=== PATIENT | male | born 1985 | race Hispanic/Latino ===

== ENCOUNTER 2016-11-06 07:44 | Inpatient (IN) | payer OTHER ==
[~2016-11-06] VITALS: Ht 182.9 cm; Wt 106.1 kg
[2016-11-06] MEDS ORDERED: METOCLOPRAMIDE INJ 10MG/2ML VIAL (J2765) As Ordered ONE (08:31)
[2016-11-06] MEDS ORDERED: diphenhydrAMINE INJ 50MG/ML VIAL (J1200) As Ordered ONE (08:31)
[2016-11-06 08:43] LABS: MEAN CORPUSCULAR HEMOGLOBIN 29.6 pg (27.0-33.0); MEAN CORPUSCULAR HGB CONC 33.1 g/dl (32.0-36.5); MEAN CORPUSCULAR VOLUME 89.5 fl (80.0-96.0); RED CELL DISTRIBUTION WIDTH 12.6 % (11.5-14.5); WHITE BLOOD COUNT 5.2 K/mm3 (4.0-10.0)
[2016-11-06 09:02] LABS: ANION GAP 8 MEQ/L (8-16); BLOOD UREA NITROGEN 17 MG/DL (7-18); CALCIUM LEVEL 9.2 MG/DL (8.5-10.1); CARBON DIOXIDE LEVEL 28 MEQ/L (21-32); CHLORIDE LEVEL 107 MEQ/L (98-107); CREATININE FOR GFR 1.27 MG/DL (0.70-1.30); GLOMERULAR FILTRATION RATE > 60.0 (>60); GLUCOSE, FASTING 111 MG/DL (70-105); POTASSIUM SERUM 3.9 MEQ/L (3.5-5.1); SODIUM LEVEL 143 MEQ/L (136-145)
--- NOTE | 2016-11-06 09:21 | REP ---
CT BRAIN WITHOUT CONTRAST: 11/06/2016 COMPARISON: 08/31/2016 CLINICAL HISTORY: Headache, syncope. FINDINGS: Lateral ventricles symmetric and without dilatation or displacement. Third ventricle is slit-like and even more narrow than on the previous study. The fourth ventricle is also smaller. Basal ganglia are symmetric. Brainstem and cerebellum show loss of perimesencephalic cisterns and loss of definition. There appears to be swelling of that posterior fossa. The bailey-white junction differentiation in the cerebellar hemispheres is maintained. There is no intra or extra-axial hemorrhage of clearly defined. No definite mass is identified. No definite infarct identified. Mastoids and visualized sinuses show only minor ethmoid sinus mucosal thickening. The skull base and calvarium show no fracture or focal lesion. IMPRESSION: 1. Interval change in the presentation CT brain with loss of the basilar cistern patency and suspected swelling in the posterior fossa. Both the perimesencephalic and suprasellar cisterns are effaced or less apparent. An isodense mass could not be excluded. No definite hemorrhage. Sinuses show some minor ethmoid sinus mucosal thickening. No focal bone lesion. I discussed this with the attending ED physician. MR recommended. Signed by Greg Ely MD 11/06/2016 04:56 P
[2016-11-06 10:41] LABS: AMPHETAMINES LEVEL URINE NEGATIVE (NEGATIVE); BENZODIAZEPINES URINE NEGATIVE (NEGATIVE); COCAINE METABOLITE URINE NEGATIVE (NEGATIVE); CONTROL LINE INT CTR LINE PRESENT; METHADONE URINE NEGATIVE (NEGATIVE); OPIATES URINE NEGATIVE (NEGATIVE); TRICYCLIC ANTIDEPRESS URINE NEGATIVE (NEGATIVE)
--- NOTE | 2016-11-06 11:33 | REP ---
MRI BRAIN WITHOUT WITH CONTRAST: 11/06/2016 COMPARISON: CT brain 11/06/2016, 08/31/2016, MRA brain today. CLINICAL HISTORY: Dizziness, weakness, posterior fossa edema on CT. TECHNIQUE: Axial T1, T2, FLAIR, diffusion weighted images with ADC mapping sequences were provided along with sagittal T1 sequence. After infusion of ProHance 21 mL, axial and coronal T1 sequences performed. FINDINGS: Lateral ventricles are symmetric and without dilatation or displacement. Slit-like third ventricle and fourth ventricle smaller than on the CT in August,. T1 images show no evidence of extra-axial fluid collection or hemorrhage. The T2 and FLAIR images show slight prominence and hyperintensity of the dura with some dural thickening and the enhanced images show increased dural enhancement diffusely. The basal ganglia are symmetric and unremarkable. Sylvian fissures are effaced compared to the CT in August. The bailey-white junction differentiation is maintained. Cortical stripe preserved. There is no atrophy or visible mass. Diffusion-weighted images and ADC mapping sequences show no evidence of acute ischemia or restricted water diffusion. After contrast administration, there is no gyriform enhancement, enhancing mass or vascular lesion. However there does appear to be some increased enhancement of the dura. The brainstem and cerebellum show no atrophy. The quadrigeminal plate cisterns are mostly effaced. No definite cerebellar tonsillar ectopia. Seventh and eighth cranial nerve complexes are symmetric and normal. There is ethmoid sinus mucosal thickening and some mucosal thickening in the floor of both maxillary sinuses. The small mucous retention cyst or polyp in the anterior wall on the left. Frontal sinuses are grossly clear as are the sphenoid sinuses. Orbits and contents symmetric. Corpus callosum, optic chiasm and pituitary are intact. There is no gyriform enhancement or enhancing mass visible in the cerebral or cerebellar hemispheres or brainstem. IMPRESSION: 1. Pattern of effacement of the basal cisterns and sylvian fissures. I do not see focal edema or mass within the brainstem, cerebellum or cerebral hemispheres. No abnormal enhancement or restricted water diffusion on diffusion-weighted images. 2. Slight prominence of hyperintense T2 and FLAIR dural signal and some dural enhancement that might reflect some meningitis, nonspecific. No nodular enhancement of the dura or MR evidence for encephalitis at this time. 3. The seventh/eighth cranial nerve complexes and mastoids intact. Sinus mucosal thickening as described. Findings were discussed with the consulting neurosurgeon by phone at the time of this dictation. Signed by Greg Ely MD 11/06/2016 05:05 P
--- NOTE | 2016-11-06 11:38 | REP ---
MRA OF THE BRAIN WITHOUT CONTRAST: 11/06/2016. Clinical history: Evaluate for vascular abnormality. Brain swelling. 3-D [id number] gradient echo with MIP reformatting and rotational display of the volume acquisition and reconstructions about the longitudinal and horizontal axis of the brain. All source images are reviewed. Vertebral artery shows symmetric contribution and formation of the basilar artery. There is no basilar stenosis or aneurysm. Both posterior cerebral arteries arise from the basilar tip. The posterior cerebral arteries are symmetric in their supply to the posterior fossa and normal. The right and left internal carotids through the skull base to the carotid siphons are unremarkable. The cavernous portions and supraclinoid internal carotids were unremarkable. The A1 segments show slightly larger right than left size but this is a normal variant. There is no focal stenosis. The bilateral M1 segments were symmetric. Trifurcation vessels of the middle cerebrals and the anterior cerebral branches were grossly unremarkable. All source images are reviewed and confirm the absence of findings. Impression: 1. Normal MR angiogram of the brain. No aneurysm, vascular malformation, vessel cutoff or focal stenosis. Signed by Greg Ely MD 11/06/2016 05:05 P
[2016-11-06] MEDS ORDERED: KETOROLAC 30 MG/ML VIAL (J1885) As Ordered ONE (11:40)
[2016-11-06] MEDS ORDERED: ACETAMINOPHEN TAB 650MG DOSE (2X325MG) PO PRN (12:15)
[2016-11-06] MEDS ORDERED: ONDANSETRON 4 MG TAB (S0181) PO PRN (12:15)
[2016-11-06 12:47] VITALS: BP 115/66
[2016-11-06] MEDS ORDERED: EXCETAB81 PO (12:50)
[2016-11-06] MEDS ORDERED: TYLE325T5 PO (12:50)
--- NOTE | 2016-11-06 13:49 | HPE ---
DATE OF ADMISSION: 11/06/2016 PRIMARY CARE PROVIDER: The patient is a [place], [place] REASON FOR ADMISSION: Headaches and a syncopal episode earlier that day. HISTORY OF PRESENT ILLNESS: The patient is a 30-year-old male with no past medical problems who presented to the emergency room complaining of sinus pressure and fluid behind his ears and a headache that is described as starting from his forehead and to the back of his head that has been going on for the past 3 months on and off, worse with sitting up or standing up. This morning, the patient stated he was putting tools away in his truck and his found him unresponsive on the floor. It took her a few seconds to wake him up and she brought him to the emergency room. He did not have any pains. He was not complaining of any focal deficits. No trauma that he sustained from fall. In the emergency room, MRI/MRA were done after CT of the head. Initial CT scan of the head showed suspected swelling in the posterior fossa. MRI was recommended. MRI of the head was done which showed edema. It was reviewed by Dr. Townsend. He recommended neurology workup. MRA was also done and was negative for any masses, any aneurysm, any vascular malformations or stenosis. Dr. Figueroa was consulted from the emergency room. He recommended to start the patient on IV fluids and caffeine, keep the patient at bedrest with bathroom privileges and he had agreed to see him in consultation. The patient was admitted to the hospitalist service. REVIEW OF SYSTEMS: Ten point review of systems was obtained, all which was negative except for those mentioned above. PAST MEDICAL HISTORY: None. PAST SURGICAL HISTORY: The patient had an eye surgery, a bone graft from hip to jaw, vasectomy, oral surgery and appendectomy. ALLERGIES: No known drug allergies. HOME MEDICATIONS: None. SOCIAL HISTORY: The patient was a smoker, but quit 6 months ago. Denies alcohol use. Lives at home with his and two kids. FAMILY HISTORY: Noncontributory. PHYSICAL EXAMINATION: Vitals: On admission, blood pressure 136/81, pulse 70, respiratory rate 18, temperature 96.5. Pulse oximetry 95% on room air. HEENT: Pupils equal round and reactive. Neck: Supple. No jugular venous distention (JVD). Lungs: Clear to auscultation (CTA) bilaterally. Cardiac: Regular rate and rhythm. No murmurs. Abdomen: Soft, nontender, nondistended. Extremities: No clubbing, cyanosis or edema. Neurologic: Cranial nerves II-XII grossly intact. No focal deficits upper or lower extremities. LABORATORY FINDINGS: WBC 5.2, hemoglobin 15.3, hematocrit 46.2, platelet count 220. Sodium 143, potassium 3.9, chloride 107, BUN 17, creatinine 1.27, fasting glucose 111. ASSESSMENT/PLAN: 1. Headaches, unknown etiology at this time. The headache is worse with sitting up from a lying position or standing. Per Dr. Figueroa, the headache sounds like a spinal headache. We will continue IV hydration and caffeine. Will continue neuro checks every [address] Figueroa is consulted and will see the patient in consultation. 2. Syncopal episode. We will monitor the patient on telemetry to rule out any cardiac arrhythmia. EKG was normal sinus rhythm. Electrolytes are within normal limits. 3. Deep vein thrombosis (DVT) prophylaxis. Sequential compression devices (SCDs), thromboembolic deterrent stockings (TEDs).
[2016-11-06 15:50] VITALS: BP 127/58
--- NOTE | 2016-11-06 15:56 | EDDOCDS ---
Nurse's Notes [facility] Name: Kyrie Driver Age: 30 yrs Sex: Male : 1985 Arrival Date: 11/06/2016 Time: 07:44 Bed 17 Private MD: Diagnosis: Headache Presentation: 11/06 07:49 Presenting complaint: Patient states: Sinus pressure, "fluid on my ears, massive ck1 headache from my sinuses to the base of my head". Sates while "putting tools away in his truck, my said I collapsed". Adult Sepsis Screening: The patient does not have new or worsening altered mentation. Patient's respiratory rate is less than 22. Systolic blood pressure is greater than 100. Patient has a qSOFA score of 0- Negative Sepsis Screen. Suicide/Homicide risk assessment- the patient denies having any suicidal and/or homicidal ideations and does not present with any other emotional, behavioral or mental health complaints. Status: The patient is an active duty service desk associate. Transition of care: patient was not received from another setting of care. 07:49 Acuity: KENNY Level 3 ck1 07:49 Method Of Arrival: Wheelchair ck1 Triage Assessment: 07:54 General: Appears in no apparent distress, comfortable, Behavior is appropriate for age, ck1 cooperative. Pain: Location: head and neck Pain currently is 7 out of 10 on a pain scale. HIV screening NA for this visit Offered previously. Neurological: Level of Consciousness is awake, alert, obeys commands, Oriented to person, place, time. Neurological: Reports dizziness. Respiratory: Respiratory effort is unlabored, Respiratory pattern is regular, symmetrical. GI: Reports nausea. Derm: Skin is pink, warm & dry. Historical: - Allergies: No known drug Allergies; - Home Meds: 1. none - PMHx: none; - PSHx: PRK Eye Surgery; bone graft from hip to Jaw; Vasectomy; oral surgery; Appendectomy; - Social history: Smoking status: Patient states former smoker of tobacco. No barriers to communication noted, The patient speaks fluent Jordanian, Speaks appropriately for age. - Family history: Not pertinent. - : The pt / caregiver states he / she is not on anticoagulants. Home medication list is obtained from the patient. - Exposure Risk Screening:: None identified. Screenin:38 Screening information is obtained from the patient. Fall risk: At risk due to ms18 dizziness. Assistance ADL's: requires no assistance with activities of daily living. Abuse/DV Screen: The patient / caregiver reports he/she is: not in a situation that causes fear, pain or injury. Nutritional screening: No deficits noted. Advance Directives: There is no living will. home support is adequate. Assessment: 08:20 General: Appears comfortable, well developed, well nourished, well groomed, Behavior is kcs cooperative, pleasant. Pain: Location: back of head to neck Pain currently is 3 out of 10 on a pain scale. Neurological: Level of Consciousness is awake, alert, Oriented to person, place, time, Moves all extremities. Gait is unsteady, Speech is normal. Respiratory: Airway is patent Respiratory effort is even, unlabored, Respiratory pattern is regular, symmetrical. Derm: Skin is intact, is healthy with good turgor, Skin is dry, Skin is normal. 09:00 Reassessment: Patient returned from CT - sleepy - responds easily to voice - states kcs headache is mostly gone. 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 Respirations easy. Siderails up and call light on rail. Adolphus applied.. 09:41 Reassessment: Patient states as long as he is flat his headache is mostly gone = 1/10. kcs Respirations easy. Color = pink. Skin = warm and dry. . 10:29 Reassessment: Patient returned from MRI via stretcher. Lying flat on stretcher. States kcs headache is mostly gone. IV bolus reconnected and infusing. Sleepy. Respirations easy. rd scientist = sinus jeremias. Siderails up and call light on rail.. 11:29 General: Appears in no apparent distress, comfortable, to be sleeping. Behavior is ms18 quiet. General: NS bolus done at this time. Pt sleeping at this time. Will continue to monitor pt. Cardiovascular: Rhythm is sinus bradycardia. Respiratory: Airway is patent Respiratory effort is even, unlabored. Derm: Skin is pink, warm & dry. normal. 12:45 General: Appears in no apparent distress, comfortable, Behavior is appropriate for age, ms18 cooperative, pleasant, Room assignment received at this time, room 3215. Will send SBAR at this time. Admission Rn at bedside. Will continue to monitor pt. Pain: Denies pain. Neurological: Level of Consciousness is awake, alert, obeys commands, Oriented to person, place, time, Moves all extremities. Speech is normal. Cardiovascular: Rhythm is sinus rhythm. Respiratory: Airway is patent Respiratory effort is even, unlabored, Respiratory pattern is regular, symmetrical. GI: Abdomen is non- distended. Derm: Skin is pink, warm & dry. normal. 13:10 General: Called to PCU, SBAR received. RN busy with a procedure at this time. Will call ms18 when ready for pt. 13:52 General: Called PCU to ask if the RN was ready for the pt. Was told that they just ms18 started the procedure and the RN was busy with that. Will continue to monitor pt. . 14:28 General: Appears in no apparent distress, comfortable, Behavior is appropriate for age, ms18 cooperative, pleasant, Pt was able to eat his lunch tray. Pt in no acute distress. Awaiting PCU to be ready for the pt. Will continue to monitor pt. Respiratory: No deficits noted. Derm: Skin is pink, warm & dry. normal. 15:15 General: Appears in no apparent distress, comfortable, Behavior is appropriate for age, ms18 cooperative, pleasant, PT can go to PCU in approx 20 mins. . Pain: Denies pain. Neurological: Level of Consciousness is awake, alert, obeys commands, Oriented to person, place, time. Respiratory: No deficits noted. Derm: Skin is pink, warm & dry. 15:37 General: Appears in no apparent distress, comfortable, Behavior is appropriate for age, ms18 cooperative, pleasant. Pain: Denies pain. Neurological: Level of Consciousness is awake, alert, obeys commands, Oriented to person, place, time. Respiratory: No deficits noted. Derm: Skin is pink, warm & dry. normal. Vital Signs: 07:51 BP 136 / 81; Pulse 70; Resp 18; Temp 96.5(O); Pulse Ox 95% on R/A; Weight 103.87 kg ck1 (R); Height 72 in. (182.88 cm) (R); Pain 7/10; 08:51 BP 131 / 70 (auto/); kcs 08:52 Pulse 52 MON; Pulse Ox 97% ; kcs 09:24 Pulse 56 MON; ms18 09:25 BP 107 / 65 (auto/); ms18 09:41 BP 107 / 65; Pulse 64; Resp 16; Pulse Ox 97% on R/A; Pain 1/10; kcs 10:18 BP 110 / 68 (auto/); kcs 10:19 Pulse 68 MON; Pulse Ox 97% ; kcs 10:22 BP 122 / 58 (auto/); kcs 10:22 Pulse 56 MON; Resp 16; Pulse Ox 96% ; kcs 10:52 BP 118 / 56 (auto/); ms18 10:53 Pulse 56 MON; Pulse Ox 98% ; ms18 11:22 BP 122 / 75 (auto/); ms18 11:23 Pulse 52 MON; Pulse Ox 97% ; ms18 11:52 BP 112 / 69 (auto/); ms18 11:53 Pulse 62 MON; Pulse Ox 97% ; ms18 12:37 BP 115 / 66 (auto/); ms18 12:38 BP 115 / 66; Pulse 60 MON; Resp 18; Temp 96.7(O); Pulse Ox 98% ; Pain 0/10; ms18 12:52 BP 120 / 60 (auto/); ms18 12:53 Pulse 58 MON; Pulse Ox 99% ; ms18 13:52 BP 111 / 53 (auto/); ms18 13:53 Pulse 58 MON; Pulse Ox 96% ; ms18 14:52 BP 104 / 68 (auto/); Resp 18; ms18 14:53 Pulse 60 MON; Pulse Ox 97% ; ms18 15:22 BP 108 / 54 (auto/); ms18 15:26 Pulse 60 MON; Resp 18; Pulse Ox 97% ; ms18 07:51 Body Mass Index 31.06 (103.87 kg, 182.88 cm) ck1 Vitals: 07:51 Log In Time: November 06, 2016 at 07:46. ck1 ED Course: 07:46 Patient visited by Ean Otto. jp5 07:46 Patient moved to Waiting jp5 07:51 Triage Initiated ck1 07:55 Patient moved to 17 ck1 08:01 Rosa Ozuna MD is Attending Physician. sd1 08:01 Patient visited by Rosa Ozuna MD. sd1 08:20 The patient / caregiver is instructed regarding the plan of care and ED course. kcs 08:25 Inserted saline lock: 20 gauge in left antecubital area The patient tolerated the kcs procedure well. 08:30 MED Profile Sent. kcs 08:30 CBC Sent. kcs 08:38 EKG done. (by ED staff). Reviewed by Rosa Ozuna MD. jrd 09:27 Patient moved to MRI deg 09:35 CT Head Without Contrast Returned. EDMS 10:17 Urine Toxicology Sent. kcs 10:29 Patient moved to 17 kcs 10:35 Patient visited by Alicia Jaimes RN. kcs 11:05 Report given to Rosangela Briceño RN. kcs 11:17 Rosangela BriceñoRN is Primary Nurse. ms18 11:29 Patient visited by Rosangela Briceño RN. ms18 11:45 -MRI-Brain w/o foll by with Returned. EDMS 11:45 -MRA-Brain without contrast Returned. EDMS 12:14 Tawanna Jones is Hospitalizing Provider. sd1 12:38 Patient has correct armband on for positive identification. Placed in gown. Bed in low ms18 position. Call light in reach. Side rails up X2. rd scientist on. Pulse ox on. NIBP on. Property :Personal belongings accompany Pt. 12:38 No procedures done that require assistance. ms18 12:43 Patient visited by Rosangela Briceño RN. ms18 13:41 [facility] Payment Agreement was scanned into [employer] and attached to record. jp5 13:52 Patient visited by Rosangela Briceño RN. ms18 15:37 Patient visited by Rosangela Briceño RN. ms18 Administered Medications: 08:00 Drug: diphenhydrAMINE 50 mg [diphenhydramine 50 mg/mL injection solution (1 mL)] Route: kcs IVP; Site: left antecubital; 12:42 Follow up: Response: No Adverse Reaction ms18 08:38 Drug: NS 0.9% 1000 ml [sodium chloride 0.9 % intravenous solution] Route: IV; Rate: kcs bolus; Site: left antecubital; 11:20 Follow up: IV Status: Completed infusion; IV Intake: 1000ml ms18 08:50 Drug: Metoclopramide 10 mg [metoclopramide 5 mg/mL injection solution] Route: IV; Rate: kcs 40 mg/hr; Infused Over: 15 mins; Site: left antecubital; 10:35 Follow up: IV Status: Completed infusion; IV Intake: 50ml kcs 11:30 Drug: NS 0.9% 1000 ml [sodium chloride 0.9 % intravenous solution] Route: IV; Rate: rs3 bolus; Site: left antecubital; 11:50 Follow up: IV Status: Completed infusion rs3 11:49 Drug: NS 0.9% 1000 ml [sodium chloride 0.9 % intravenous solution] Route: IV; Rate: 150 rs3 mL/hr; Site: left antecubital; 11:50 Drug: ketorolac 30 mg [ketorolac 30 mg/mL (1 mL) injection solution (1 mL)] Route: IVP; rs3 Site: left antecubital; Intake: 10:35 IV: 50.00ml; Total: 50.00ml. kcs 11:20 IV: 1000.00ml; Total: 1050.00ml. ms18 Output: 09:20 Urine: 400.00ml (Voided); Total: 400.00ml. kcs Order Results: Lab Order: CBC; SPEC'M 11/06/16 08:28 Test: WHITE BLOOD COUNT; Value: 5.2; Range: 4.0-10.0; Units: K/mm3; Status: F Test: RED BLOOD COUNT; Value: 5.17; Range: 4.30-6.10; Units: M/mm3; Status: F Test: HEMOGLOBIN; Value: 15.3; Range: 14.0-18.0; Units: g/dl; Status: F Test: HEMATOCRIT; Value: 46.2; Range: 42.0-52.0; Units: %; Status: F Test: MEAN CORPUSCULAR VOLUME; Value: 89.5; Range: 80.0-96.0; Units: fl; Status: F Test: MEAN CORPUSCULAR HEMOGLOBIN; Value: 29.6; Range: 27.0-33.0; Units: pg; Status: F Test: MEAN CORPUSCULAR HGB CONC; Value: 33.1; Range: 32.0-36.5; Units: g/dl; Status: F Test: RED CELL DISTRIBUTION WIDTH; Value: 12.6; Range: 11.5-14.5; Units: %; Status: F Test: PLATELET COUNT, AUTOMATED; Value: 220; Range: 150-450; Units: k/mm3; Status: F Lab Order: MED Profile; SPEC'M 11/06/16 08:28 Test: GLUCOSE, FASTING; Value: 111; Range: 70-105; Abnormal: Above high normal; Units: MG/DL; Status: F Test: BLOOD UREA NITROGEN; Value: 17; Range: 7-18; Units: MG/DL; Status: F Test: CREATININE FOR GFR; Value: 1.27; Range: 0.70-1.30; Units: MG/DL; Status: F Test: GLOMERULAR FILTRATION RATE; Value: > 60.0; Range: >60; Status: F Test: SODIUM LEVEL; Value: 143; Range: 136-145; Units: MEQ/L; Status: F Test: POTASSIUM SERUM; Value: 3.9; Range: 3.5-5.1; Units: MEQ/L; Status: F Test: CHLORIDE LEVEL; Value: 107; Range: 98-107; Units: MEQ/L; Status: F Test: CARBON DIOXIDE LEVEL; Value: 28; Range: 21-32; Units: MEQ/L; Status: F Test: ANION GAP; Value: 8; Range: 8-16; Units: MEQ/L; Status: F Test: CALCIUM LEVEL; Value: 9.2; Range: 8.5-10.1; Units: MG/DL; Status: F Test Note: ; Units are mL/min/1.73 m2 Chronic Kidney Disease Staging per NKF: Stage I & II GFR >=60 Normal to Mildly Decreased Stage III GFR 30-59 Moderately Decreased Stage IV GFR 15-29 Severely Decreased Stage V GFR <15 Very Little GFR Left ESRD GFR <15 on LEAD [employer]ER BLASTING Lab Order: Urine Toxicology; SPEC'M 11/06/16 10:20 Test: AMPHETAMINES LEVEL URINE; Value: NEGATIVE; Range: NEGATIVE; Status: F Test: BARBITURATES URINE; Value: NEGATIVE; Range: NEGATIVE; Status: F Test: BENZODIAZEPINES URINE; Value: NEGATIVE; Range: NEGATIVE; Status: F Test: CANNABINOIDS URINE; Value: NEGATIVE; Range: NEGATIVE; Status: F Test: COCAINE METABOLITE URINE; Value: NEGATIVE; Range: NEGATIVE; Status: F Test: METHADONE URINE; Value: NEGATIVE; Range: NEGATIVE; Status: F Test: OPIATES URINE; Value: NEGATIVE; Range: NEGATIVE; Status: F Test: TRICYCLIC ANTIDEPRESS URINE; Value: NEGATIVE; Range: NEGATIVE; Status: F Test Note: ; ALL PRESUMPTIVE POSITIVE FINDINGS ARE UNCONFIRMED NORMAL VALUES THRESHOLD IN NG/ML AMPHETAMINES 1000 METHAMPHETAMINES 1000 BARBITURATES 300 BENZODIAZEPINES 300 CANNABINOIDS (THC) 50 COCAINE METABOLITE 300 METHADONE 300 OPIATES 300 PHENCYCLIDINE 25 TRICYCLIC ANTIDEPRESSANTS 1000 RESULTS ARE FOR MEDICAL PURPOSES ONLY. ALL URINE SPECIMENS WILL BE SAVED FOR 3 DAYS. IF CONFIRMATION OF A PRESUMPTIVE POSTIVE SCREEN RESULT IS DESIRED, CALL CHEMISTRY ([phone]) AND REQUEST URINE TO BE SENT TO REFERENCE LAB. FOR A LIST OF CLOSELY RELATED COMPOUNDS PLEASE CALL THE LAB. Radiology Order: CT Head Without Contrast Test: CT Head Without Contrast REASON FOR EXAMINATION: headache/syncope; CT BRAIN WITHOUT CONTRAST: 11/06/2016; ; COMPARISON: 08/31/2016; ; CLINICAL HISTORY: Headache, syncope.; ; FINDINGS: Lateral ventricles symmetric and without dilatation or displacement.; Third ventricle is slit-like and even more narrow than on the previous study.; The fourth ventricle is also smaller. Basal ganglia are symmetric. Brainstem and; cerebellum show loss of perimesencephalic cisterns and loss of definition. There; appears to be swelling of that posterior fossa. The bailey-white junction; differentiation in the cerebellar hemispheres is maintained. There is no intra; or extra-axial hemorrhage of clearly defined. No definite mass is identified. No; definite infarct identified. Mastoids and visualized sinuses show only minor; ethmoid sinus mucosal thickening. The skull base and calvarium show no fracture; or focal lesion.; ; IMPRESSION:; 1. Interval change in the presentation CT brain with loss of the basilar cistern; patency and suspected swelling in the posterior fossa. Both the; perimesencephalic and suprasellar cisterns are effaced or less apparent. An; isodense mass could not be excluded. No definite hemorrhage. Sinuses show some; minor ethmoid sinus mucosal thickening. No focal bone lesion. I discussed this; with the attending ED physician. MR recommended.; ; ; ; ; ; ; Unreviewed; Radiology Order: -MRI-Brain w/o foll by with Test: -MRI-Brain w/o foll by with REASON FOR EXAMINATION: posterior fossa edema on CT; MRI BRAIN WITHOUT WITH CONTRAST: 11/06/2016; ; COMPARISON: CT brain 11/06/2016, 08/31/2016, MRA brain today.; ; CLINICAL HISTORY: Dizziness, weakness, posterior fossa edema on CT.; ; TECHNIQUE: Axial T1, T2, FLAIR, diffusion weighted images with ADC mapping; sequences were provided along with sagittal T1 sequence. After infusion of; ProHance 21 mL, axial and coronal T1 sequences performed.; ; FINDINGS: Lateral ventricles are symmetric and without dilatation or; displacement. Slit-like third ventricle and fourth ventricle smaller than on the; CT in August,. T1 images show no evidence of extra-axial fluid collection; or hemorrhage. The T2 and FLAIR images show slight prominence and hyperintensity; of the dura with some dural thickening and the enhanced images show increased; dural enhancement diffusely. The basal ganglia are symmetric and unremarkable.; Sylvian fissures are effaced compared to the CT in August. The bailey-white; junction differentiation is maintained. Cortical stripe preserved. There is no; atrophy or visible mass. Diffusion-weighted images and ADC mapping sequences; show no evidence of acute ischemia or restricted water diffusion. After contrast; administration, there is no gyriform enhancement, enhancing mass or vascular; lesion. However there does appear to be some increased enhancement of the dura.; The brainstem and cerebellum show no atrophy. The quadrigeminal plate cisterns; are mostly effaced. No definite cerebellar tonsillar ectopia. Seventh and; eighth cranial nerve complexes are symmetric and normal. There is ethmoid sinus; mucosal thickening and some mucosal thickening in the floor of both maxillary; sinuses. The small mucous retention cyst or polyp in the anterior wall on the; left. Frontal sinuses are grossly clear as are the sphenoid sinuses. Orbits and; contents symmetric. Corpus callosum, optic chiasm and pituitary are intact.; There is no gyriform enhancement or enhancing mass visible in the cerebral or; cerebellar hemispheres or brainstem.; ; IMPRESSION:; 1. Pattern of effacement of the basal cisterns and sylvian fissures. I do not; see focal edema or mass within the brainstem, cerebellum or cerebral; hemispheres. No abnormal enhancement or restricted water diffusion on; diffusion-weighted images.; ; 2. Slight prominence of hyperintense T2 and FLAIR dural signal and some dural; enhancement that might reflect some meningitis, nonspecific. No nodular; enhancement of the dura or MR evidence for encephalitis at this time.; ; 3. The seventh/eighth cranial nerve complexes and mastoids intact. Sinus; mucosal thickening as described. Findings were discussed with the consulting; neurosurgeon by phone at the time of this dictation.; ; ; ; ; ; ; Unreviewed; Radiology Order: -MRA-Brain without contrast Test: -MRA-Brain without contrast REASON FOR EXAMINATION: concern for vascular abnormlaity per Dr. Townsend; MRA of the brain without contrast, 11/06/2016:; ; Clinical history: Evaluate for vascular abnormality. Brain swelling.; ; 3-D [id number] gradient echo with MIP reformatting and rotational display of; the volume acquisition and reconstructions about the longitudinal and horizontal; axis of the brain. All source images are reviewed. Vertebral artery shows; symmetric contribution and formation of the basilar artery. There is no basilar; stenosis or aneurysm. Both posterior cerebral arteries arise from the basilar; tip. The posterior cerebral arteries are symmetric in their supply to the; posterior fossa and normal. The right and left internal carotids through the; skull base to the carotid siphons are unremarkable. The cavernous portions and; supraclinoid internal carotids were unremarkable. The A1 segments show slightly; larger right than left size but this is a normal variant. There is no focal; stenosis. The bilateral M1 segments were symmetric. Trifurcation vessels of the; middle cerebrals and the anterior cerebral branches were grossly unremarkable.; ; All source images are reviewed and confirm the absence of findings.; ; Impression:; 1. Normal MR angiogram of the brain. No aneurysm, vascular malformation, vessel; cutoff or focal stenosis.; ; ; ; ; Unreviewed; Outcome: 12:14 Decision to Hospitalize by Provider. sd1 12:38 Discharge Assessment: patient administered narcotics - no. The following High Risk ms18 Discharge criteria are identified: None. Admitted to PCU accompanied by nurse, accompanied by tech, via stretcher, on monitor, with chart. Condition: good Condition: stable. CT Study completed. MRI Study completed. Property :Personal belongings accompany Pt. 15:55 Patient left the ED. ms18 Signatures: Dispatcher [employer] EDMS Rosa Ozuna MD MD sd1 Alicia Jaimes RN RN kcs Murray, Denise, Step Down Nurse Unit deg Dara Moss RN RN ck1 Baylee Johnson RN RN rs3 Rosangela Briceño RN RN ms18 Fredrick Sams, [employer] jrd Ean Otto jp5 MTDD
--- NOTE | 2016-11-06 15:56 | EDDOCDS ---
Physician Documentation [facility] Name: Kyrie Driver Age: 30 yrs Sex: Male : 1985 Arrival Date: 11/06/2016 Time: 07:44 Bed 17 Private MD: Disposition: 11/06/16 12:14 Hospitalization ordered by Tawanna Jones for Inpatient Admission. Preliminary diagnosis is Headache. - Bed requested for PCU. - Status is Inpatient Admission. ms18 - Condition is Stable. - Problem is an ongoing problem. - Symptoms are unchanged. Historical: - Allergies: No known drug Allergies; - Home Meds: 1. none - PMHx: none; - PSHx: PRK Eye Surgery; bone graft from hip to Jaw; Vasectomy; oral surgery; Appendectomy; - Social history: Smoking status: Patient states former smoker of tobacco. No barriers to communication noted, The patient speaks fluent Polish, Speaks appropriately for age. - Family history: Not pertinent. - : The pt / caregiver states he / she is not on anticoagulants. Home medication list is obtained from the patient. - Exposure Risk Screening:: None identified. Vital Signs: 11/06 07:51 BP 136 / 81; Pulse 70; Resp 18; Temp 96.5(O); Pulse Ox 95% on R/A; Weight 103.87 kg / ck1 228.99 lbs (R); Height 72 in. (182.88 cm) (R); Pain 7/10; 08:51 BP 131 / 70 (auto/); kcs 08:52 Pulse 52 MON; Pulse Ox 97% ; kcs 09:24 Pulse 56 MON; ms18 09:25 BP 107 / 65 (auto/); ms18 09:41 BP 107 / 65; Pulse 64; Resp 16; Pulse Ox 97% on R/A; Pain 1/10; kcs 10:18 BP 110 / 68 (auto/); kcs 10:19 Pulse 68 MON; Pulse Ox 97% ; kcs 10:22 BP 122 / 58 (auto/); kcs 10:22 Pulse 56 MON; Resp 16; Pulse Ox 96% ; kcs 10:52 BP 118 / 56 (auto/); ms18 10:53 Pulse 56 MON; Pulse Ox 98% ; ms18 11:22 BP 122 / 75 (auto/); ms18 11:23 Pulse 52 MON; Pulse Ox 97% ; ms18 11:52 BP 112 / 69 (auto/); ms18 11:53 Pulse 62 MON; Pulse Ox 97% ; ms18 12:37 BP 115 / 66 (auto/); ms18 12:38 BP 115 / 66; Pulse 60 MON; Resp 18; Temp 96.7(O); Pulse Ox 98% ; Pain 0/10; ms18 12:52 BP 120 / 60 (auto/); ms18 12:53 Pulse 58 MON; Pulse Ox 99% ; ms18 13:52 BP 111 / 53 (auto/); ms18 13:53 Pulse 58 MON; Pulse Ox 96% ; ms18 14:52 BP 104 / 68 (auto/); Resp 18; ms18 14:53 Pulse 60 MON; Pulse Ox 97% ; ms18 15:22 BP 108 / 54 (auto/); ms18 15:26 Pulse 60 MON; Resp 18; Pulse Ox 97% ; ms18 07:51 Body Mass Index 31.06 (103.87 kg, 182.88 cm) ck1 MDM: 08:16 IV Saline Lock ordered. sd1 08:16 NS 0.9% 1000 ml IV at bolus once ordered. sd1 08:17 Metoclopramide 10 mg IV at 40 mg/hr once over 15 mins ordered. sd1 08:17 diphenhydrAMINE 50 mg IVP once ordered. sd1 08:17 CT Head Without Contrast Ordered. EDMS 08:18 CBC Ordered. EDMS 08:18 MED Profile Ordered. EDMS 08:18 ECG WITH READING ER PHYS+CARDIAG ordered. EDMS 09:06 MED Profile Reviewed. sd1 09:06 CBC Reviewed. sd1 09:08 MRI Screening Tool - Place on chart, inform RN ordered. sd1 09:08 -MRI-Brain w/o foll by with Ordered. EDMS 09:20 MRI Screening Tool - Place on chart, inform RN complete. kcs 09:41 Urine Toxicology Ordered. EDMS 09:41 -MRA-Brain without contrast Ordered. EDMS 10:30 CT Head Without Contrast Reviewed. sd1 11:00 Urine Toxicology Reviewed. sd1 11:30 NS 0.9% 1000 ml IV at bolus once ordered. sd1 11:34 ketorolac 30 mg IVP once ordered. sd1 11:34 NS 0.9% 1000 ml IV at 150 mL/hr continuous ordered. sd1 12:24 Admission / Observation Status ordered. EDMS 12:24 REGULAR DIET ordered. EDMS 13:41 [facility] Payment Agreement was scanned into [facility] and attached to record. jp5 13:41 Financial registration complete. jp5 Administered Medications: 08:00 Drug: diphenhydrAMINE 50 mg [diphenhydramine 50 mg/mL injection solution (1 mL)] Route: kcs IVP; Site: left antecubital; 12:42 Follow up: Response: No Adverse Reaction ms18 08:38 Drug: NS 0.9% 1000 ml [sodium chloride 0.9 % intravenous solution] Route: IV; Rate: kcs bolus; Site: left antecubital; 11:20 Follow up: IV Status: Completed infusion; IV Intake: 1000ml ms18 08:50 Drug: Metoclopramide 10 mg [metoclopramide 5 mg/mL injection solution] Route: IV; Rate: kcs 40 mg/hr; Infused Over: 15 mins; Site: left antecubital; 10:35 Follow up: IV Status: Completed infusion; IV Intake: 50ml kcs 11:30 Drug: NS 0.9% 1000 ml [sodium chloride 0.9 % intravenous solution] Route: IV; Rate: rs3 bolus; Site: left antecubital; 11:50 Follow up: IV Status: Completed infusion rs3 11:49 Drug: NS 0.9% 1000 ml [sodium chloride 0.9 % intravenous solution] Route: IV; Rate: 150 rs3 mL/hr; Site: left antecubital; 11:50 Drug: ketorolac 30 mg [ketorolac 30 mg/mL (1 mL) injection solution (1 mL)] Route: IVP; rs3 Site: left antecubital; Signatures: Dispatcher [employer] EDNC Rosa Ozuna MD MD sd1 Sleeman, Kacey RN RN kcs Dara MossRN RN ck1 Rosangela Briceño RN RN ms18 Ean Otto jp5 Baylee Johnson RN rs3 The chart was reviewed and I authenticate all verbal orders and agree with the evaluation and treatment provided.Attachments: 13:41 [facility] Payment Agreement jp5 MTDD
[2016-11-06] MEDS: NS 1,000 ML IV SCH ×2 (16:42→21:01)
[2016-11-06] MEDS ORDERED: FIORICET TAB PO PRN (18:30)
[2016-11-06 20:00] VITALS: BP 121/71
[2016-11-06 23:51] VITALS: BP 110/63
[2016-11-07] MEDS ORDERED: EXCEDRIN MIGRAINE TABLET PO PRN (01:15)
[2016-11-07] MEDS ORDERED: SODIUM CHLORIDE NASAL 0.65% SPRAY BTL (OCEAN) PRN (01:30)
[2016-11-07 04:00] VITALS: BP 137/61
[2016-11-07 06:05] LABS: BASO % 0.7 % (0.0-1.0); EOS # 0.1 K/mm3 (0.0-0.50); EOS % 2.4 % (0.0-3.0); LARGE UNSTAINED CELL # 0.2 K/mm3 (0.0-0.4); LARGE UNSTAINED CELL % 4.2 % (0.0-4.0); LYMPH # 1.1 K/mm3 (1.5-4.5); LYMPH % 21.4 % (24.0-44.0); MEAN CORPUSCULAR HGB CONC 33.4 g/dl (32.0-36.5); MEAN CORPUSCULAR VOLUME 89.9 fl (80.0-96.0); MONO # 0.5 K/mm3 (0.0-0.8); NEUTROPHILS % 61.4 % (36.0-66.0); PLATELET COUNT, AUTOMATED 205 k/mm3 (150-450); RED CELL DISTRIBUTION WIDTH 12.4 % (11.5-14.5); WHITE BLOOD COUNT 4.9 K/mm3 (4.0-10.0)
[2016-11-07 06:25] LABS: ALBUMIN 3.4 GM/DL (3.2-5.2); ALKALINE PHOSPHATASE 71 U/L (45-117); ALT/SGPT 40 U/L (12-78); ANION GAP 9 MEQ/L (8-16); AST/SGOT 20 U/L (15-37); BILIRUBIN,TOTAL 0.3 MG/DL (0.2-1.0); BLOOD UREA NITROGEN 14 MG/DL (7-18); CALCIUM LEVEL 8.3 MG/DL (8.5-10.1); CARBON DIOXIDE LEVEL 24 MEQ/L (21-32); CHLORIDE LEVEL 110 MEQ/L (98-107); CREATININE FOR GFR 1.07 MG/DL (0.70-1.30); GLOMERULAR FILTRATION RATE > 60.0 (>60); GLUCOSE, FASTING 105 MG/DL (70-105); SODIUM LEVEL 143 MEQ/L (136-145); TOTAL PROTEIN 6.5 GM/DL (6.4-8.2)
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
[2016-11-07 08:00] VITALS: BP 122/57
[2016-11-07] MEDS: NS 1,000 ML IV SCH ×2 (08:11→18:11)
[2016-11-07] MEDS ORDERED: ISOVUE-370 76% 100ML VIAL (Q9967) As Ordered ONE (08:13)
--- NOTE | 2016-11-07 09:16 | ECGEPIP ---
Stationary ECG Study [facility] - ED Test Date: 2016-11-06 Pat Name: JOHNNY HERNANDEZ Department: Room: - Gender: M [employer]: blake : 1985 Requested By: Rosa Ozuna Order Number: [id number] Reading MD: Rosa Ozuna Measurements Intervals [place] Rate: 61 P: 41 VT: 218 QRS: -39 QRSD: 121 T: 52 QT: 430 QTc: 434 Interpretive Statements SINUS RHYTHM WITH FIRST DEGREE AV BLOCK MARKED LEFT AXIS DEVIATION MODERATE INTRAVENTRICULAR CONDUCTION DELAY NO PRIOR FOR COMPARISON Electronically Signed On 11-07-2016 9:16:30 EST by Rosa Ozuna
--- NOTE | 2016-11-07 10:37 | IPNPDOC ---
Assessment/Plan Date Seen The patient was seen on 11/07/16. Problems Problems: (1) Headache Status: Acute Problem Text: * pt still complaining of headaches, worse with sitting up or standing * he was evaluated by Dr Figueroa who recommended continue IV hydration, caffeine and bed rest * CT face and maxillary to rule out cribriform plate fracture and csf leak * consult Dr Townsend (2) Episode of syncope Status: Resolved Problem Text: * unwitnessed, found patient passed out outside * continue to monitor on tele to rule out cardiac arrhythmia Plan / VTE VTE Prophylaxis Ordered?: Yes Subjective Review of Systems CC/HPI The patient is a 30-year-old male admitted with a reason for visit of Headache. Events since last encounter pt seen and examined, continues to have headaches with sitting up and standing, no nausea or vomiting, no other events, no focal weaknesses Objective Physical Examination General Exam: Positive: Alert, No Acute Distress Eye Exam: Positive: Conjunctiva & lids normal, PERRLA Chest Exam: Positive: Clear to auscultation, Normal air movement Heart Exam: Positive: Normal S1, Normal S2, Rate Normal, Regular Rhythm, Negative: Murmurs, Rubs Abdomen Exam: Positive: Normal bowel sounds, Soft, Negative: Hepatospenomegaly, Tenderness Extremity Exam: Positive: Normal pulses, Negative: Clubbing, Cyanosis, Edema Neuro Exam: Positive: Cranial Nerves 3-12 NL, Normal Speech Vital Signs/I&O Vital Signs Date Time Temp Pulse Resp B/P Pulse Ox O2 Delivery O2 Flow Rate FiO2 11/07/16 04:00 97.1 60 18 137/61 95 Room Air I&O- Last 24 Hours up to 6 AM 11/07/16 06:00 Intake Total 1740 ml Output Total 1675 ml Balance 65 ml Laboratory Data Labs 24H Laboratory Tests 2 11/06/16 10:20: Urine Amphetamine Level NEGATIVE, Urine Benzodiazepines Screen NEGATIVE, Urine Cannabinoids NEGATIVE, Urine Cocaine Metabolite NEGATIVE, Urine Opiates Screen NEGATIVE, Urine Barbiturates, Qualitative NEGATIVE, Urine Methadone Screen NEGATIVE, Urine Tricyclic Antidepressants NEGATIVE 11/07/16 05:35: Blood Urea Nitrogen 14, Creatinine 1.07, Sodium Level 143, Potassium Level 4.0, Chloride Level 110H, Carbon Dioxide Level 24, Calcium Level 8.3L, Aspartate Amino Transf (AST/SGOT) 20, Alanine Aminotransferase (ALT/SGPT) 40, Alkaline Phosphatase 71, Total Bilirubin 0.3, Total Protein 6.5, Albumin 3.4, Albumin/ Globulin Ratio 1.10, Anion Gap 9, White Blood Count 4.9, Red Blood Count 4.88, Hemoglobin 14.7, Hematocrit 43.9, Mean Corpuscular Volume 89.9, Mean Corpuscular Hemoglobin 30.0, Mean Corpuscular Hemoglobin Concent 33.4, Red Cell Distribution Width 12.4, Platelet Count 205, Neutrophils (%) (Auto) 61.4, Lymphocytes (%) (Auto) 21.4L, Monocytes (%) (Auto) 10.0H, Eosinophils (%) (Auto ) 2.4, Basophils (%) (Auto) 0.7, Neutrophils # (Auto) 3.0, Lymphocytes # (Auto) 1.1L, Monocytes # (Auto) 0.5, Eosinophils # (Auto) 0.1, Basophils # (Auto) 0.0, Glomerular Filtration Rate > 60.0, Large Unclassified Cells # 0.2, Large Unclassified Cells % 4.2H CBC/BMP Laboratory Tests 11/07/16 05:35 Calcium Level 8.3 L, Aspartate Amino Transf (AST/SGOT) 20, Alanine Aminotransferase (ALT/SGPT) 40, Alkaline Phosphatase 71, Total Bilirubin 0.3, Total Protein 6.5, Albumin 3.4, Red Blood Count 4.88, Mean Corpuscular Volume 89.9, Mean Corpuscular Hemoglobin 30.0, Mean Corpuscular Hemoglobin Concent 33.4 , Red Cell Distribution Width 12.4, Neutrophils (%) (Auto) 61.4, Lymphocytes (% ) (Auto) 21.4 L, Monocytes (%) (Auto) 10.0 H, Eosinophils (%) (Auto) 2.4, Basophils (%) (Auto) 0.7, Neutrophils # (Auto) 3.0, Lymphocytes # (Auto) 1.1 L, Monocytes # (Auto) 0.5, Eosinophils # (Auto) 0.1, Basophils # (Auto) 0.0 ALYSON LOWRY DO Nov 07, 2016 08:37
--- NOTE | 2016-11-07 11:10 | REP ---
CT MAXILLOFACIAL WITH CONTRAST: 11/07/2016. Clinical history: Rule out CSF leak and cribriform plate fracture. Axial thin-section images with coronal and sagittal reconstructions with bone and soft tissue windows presented for each projection following infusion of 75 mL of Isovue 370. Axial images show mucosal thickening medial miramontes of both maxillary sinuses along the anterior margin of the left maxillary sinus and from its roof. There is occlusion of the OMC bilaterally from mucosal thickening. Infundibulum is stenotic on the right and occluded on the left. Nasal air passage around the inferior turbinate is occluded on the left. No beau bullosa of the middle turbinates. There is bilateral ethmoid sinus mucosal thickening. Some minor mucosal thickening anterior wall of both sphenoid sinuses. Frontal sinuses show some mucosal thickening only at the frontoethmoid recess on the left. There were no air-fluid levels. Maxillary sinus miramontes are without fracture. The medial orbital miramontes were intact. Orbital floors and optic struts were also intact. On the thin section coronal images in both bone and soft tissue windows, there is no evidence of discontinuity of the cribriform plate. There is a normal scar brett. Lung window review of all slices shows no evidence of pneumocephalus. No evidence of a mass in the region of the skull base. Visualized mandible, maxilla and adjacent cervical vertebral levels and craniocervical junction were unremarkable. Impression: 1. There is evidence of sinus mucosal disease in the ethmoids, to a lesser extent maxillary and sphenoid sinuses as well as the frontoethmoid recess noted. No fracture of the floor of the anterior cranial fossa or cribriform plate. No pneumocephalus. Signed by Greg Ely MD 11/07/2016 04:42 P
[2016-11-07 12:00] VITALS: BP 126/64
[2016-11-07] MEDS ORDERED: MORPHINE 2 MG/ML 1ML SYRINGE IV ONE (14:30)
[2016-11-07 16:00] VITALS: BP 127/66
[2016-11-07] MEDS: MORPHINE 2 MG/ML 1ML SYRINGE IV PRN ×2 (19:01→23:18)
[2016-11-07 20:08] VITALS: BP 118/65
[2016-11-07] MEDS: AcetaZOLAMIDE 250 MG TAB PO SCH (20:21)
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
[2016-11-07 23:18] VITALS: BP 116/56
[2016-11-08 05:11] LABS: BASO % 0.5 % (0.0-1.0); EOS # 0.2 K/mm3 (0.0-0.50); EOS % 4.1 % (0.0-3.0); LARGE UNSTAINED CELL # 0.2 K/mm3 (0.0-0.4); LARGE UNSTAINED CELL % 3.6 % (0.0-4.0); LYMPH # 1.1 K/mm3 (1.5-4.5); LYMPH % 18.1 % (24.0-44.0); MEAN CORPUSCULAR HEMOGLOBIN 30.6 pg (27.0-33.0); MEAN CORPUSCULAR HGB CONC 33.2 g/dl (32.0-36.5); MONO # 0.5 K/mm3 (0.0-0.8); MONO % 7.7 % (0.0-5.0); NEUTROPHILS # 4.2 K/mm3 (1.8-7.7); PLATELET COUNT, AUTOMATED 216 k/mm3 (150-450); RED CELL DISTRIBUTION WIDTH 12.5 % (11.5-14.5); WHITE BLOOD COUNT 6.3 K/mm3 (4.0-10.0)
[2016-11-08] MEDS: NS 1,000 ML IV SCH ×3 (05:26→23:57)
[2016-11-08 05:27] VITALS: BP 93/50
[2016-11-08 05:34] LABS: ALBUMIN 3.8 GM/DL (3.2-5.2); ALBUMIN/GLOBULIN RATIO 1.23 (1.00-1.93); ALKALINE PHOSPHATASE 76 U/L (45-117); ALT/SGPT 39 U/L (12-78); ANION GAP 9 MEQ/L (8-16); AST/SGOT 19 U/L (15-37); BILIRUBIN,TOTAL 0.4 MG/DL (0.2-1.0); BLOOD UREA NITROGEN 14 MG/DL (7-18); CALCIUM LEVEL 8.8 MG/DL (8.5-10.1); CARBON DIOXIDE LEVEL 23 MEQ/L (21-32); CHLORIDE LEVEL 110 MEQ/L (98-107); GLOMERULAR FILTRATION RATE > 60.0 (>60); GLUCOSE, FASTING 103 MG/DL (70-105); POTASSIUM SERUM 4.1 MEQ/L (3.5-5.1); SODIUM LEVEL 142 MEQ/L (136-145); TOTAL PROTEIN 6.9 GM/DL (6.4-8.2)
[2016-11-08] MEDS: MORPHINE 2 MG/ML 1ML SYRINGE IV PRN ×4 (07:31→21:01)
[2016-11-08 08:00] VITALS: BP 114/58
[2016-11-08] MEDS: AcetaZOLAMIDE 250 MG TAB PO SCH (10:03)
[2016-11-08 12:00] VITALS: BP 103/54
--- NOTE | 2016-11-08 14:05 | REP ---
MRI CERVICAL SPINE WITHOUT CONTRAST: HISTORY: Question CSF leak. Intracranial hypotension pattern on neural imaging. TECHNIQUE: Sagittal and axial T1 and T2-weighted scans are acquired in the usual fashion with and without fat saturation. Sequences include spin echo, turbo spin-echo, and STIR imaging sequences. MRI FINDINGS: There is straightening of the normal cervical lordosis. Cervical vertebral body heights are preserved. Alignment is normal. Disc spaces are maintained. Cervical cord is normal in coarse, caliber and signal intensity. Sagittal and axial images show no evidence of disc herniation, central canal stenosis, mass or cyst at any level in the cervical canal. No cord compressive lesion is seen. No extraspinal abnormality is observed. IMPRESSION: Straightening, otherwise negative MRI cervical spine without contrast. Signed by Damaso Diaz MD 11/08/2016 02:30 P
--- NOTE | 2016-11-08 14:36 | REP ---
LUMBAR SPINE MRI STUDY WITHOUT CONTRAST: HISTORY: Intracranial hypotension pattern. Question CSF leak. TECHNIQUE: Sagittal and axial T1 and T2-weighted scans are acquired in the usual fashion with and without fat saturation. Sequences include spin echo, turbo spin-echo, and STIR imaging sequences. MRI FINDINGS: Lumbar vertebral body heights are preserved. Alignment is normal. There is some straightening. Conus medullaris terminates at the T12-L1 level and is unremarkable. Disc spaces are maintained in height and signal intensity. No disc herniation is seen at any level. No neural foraminal narrowing is seen. There is no evidence of spondylolysis or spondylolisthesis. No intraspinal mass lesion is observed. IMPRESSION: No cord or cauda equina compressive lesion seen. Unremarkable MRI lumbar spine. Signed by Damaso Diaz MD 11/08/2016 02:56 P
--- NOTE | 2016-11-08 14:42 | REP ---
MRI STUDY OF THE THORACIC SPINE WITHOUT CONTRAST: HISTORY: Findings suggestive of intracranial hypotension question CSF leak. TECHNIQUE: Sagittal and axial T1 and T2-weighted scans are acquired in the usual fashion with and without fat saturation. Sequences include spin echo, turbo spin-echo, and STIR imaging sequences. MRI FINDINGS: Cortical and medullary bone signal intensity are normal. Thoracic vertebral body heights are preserved. Alignment is normal. Disc spaces are maintained. There is no evidence of thoracic disc herniation. No intraspinal or paraspinal mass is seen. No neural foraminal narrowing is seen. No cord compressive lesion is seen. Thoracic cord is normal in course and caliber and signal intensity on T1 and T2-weighted scans. No thoracic disc herniation is appreciated. IMPRESSION: Unremarkable thoracic spine MRI study. Signed by Damaso Diaz MD 11/08/2016 02:57 P
[2016-11-08] MEDS ORDERED: ZONISAMIDE 50 MG CAP (ZONEGRAN) PO ONE (15:00)
[2016-11-08 16:00] VITALS: BP 125/66
--- NOTE | 2016-11-08 16:56 | EDDOCDS ---
Physician Documentation [facility] Name: Kyrie Driver Age: 30 yrs Sex: Male : 1985 Arrival Date: 11/06/2016 Time: 07:44 Bed 17 Private MD: Disposition: 11/06/16 12:14 Hospitalization ordered by Tawanna Jones for Inpatient Admission. Preliminary diagnosis is Headache. - Bed requested for PCU. - Status is Inpatient Admission. ms18 - Condition is Stable. - Problem is an ongoing problem. - Symptoms are unchanged. Historical: - Allergies: No known drug Allergies; - Home Meds: 1. none - PMHx: none; - PSHx: PRK Eye Surgery; bone graft from hip to Jaw; Vasectomy; oral surgery; Appendectomy; - Social history: Smoking status: Patient states former smoker of tobacco. No barriers to communication noted, The patient speaks fluent Sets[place], Speaks appropriately for age. - Family history: Not pertinent. - : The pt / caregiver states he / she is not on anticoagulants. Home medication list is obtained from the patient. - Exposure Risk Screening:: None identified. Vital Signs: 11/06 07:51 BP 136 / 81; Pulse 70; Resp 18; Temp 96.5(O); Pulse Ox 95% on R/A; Weight 103.87 kg / ck1 228.99 lbs (R); Height 72 in. (182.88 cm) (R); Pain 7/10; 08:51 BP 131 / 70 (auto/); kcs 08:52 Pulse 52 MON; Pulse Ox 97% ; kcs 09:24 Pulse 56 MON; ms18 09:25 BP 107 / 65 (auto/); ms18 09:41 BP 107 / 65; Pulse 64; Resp 16; Pulse Ox 97% on R/A; Pain 1/10; kcs 10:18 BP 110 / 68 (auto/); kcs 10:19 Pulse 68 MON; Pulse Ox 97% ; kcs 10:22 BP 122 / 58 (auto/); kcs 10:22 Pulse 56 MON; Resp 16; Pulse Ox 96% ; kcs 10:52 BP 118 / 56 (auto/); ms18 10:53 Pulse 56 MON; Pulse Ox 98% ; ms18 11:22 BP 122 / 75 (auto/); ms18 11:23 Pulse 52 MON; Pulse Ox 97% ; ms18 11:52 BP 112 / 69 (auto/); ms18 11:53 Pulse 62 MON; Pulse Ox 97% ; ms18 12:37 BP 115 / 66 (auto/); ms18 12:38 BP 115 / 66; Pulse 60 MON; Resp 18; Temp 96.7(O); Pulse Ox 98% ; Pain 0/10; ms18 12:52 BP 120 / 60 (auto/); ms18 12:53 Pulse 58 MON; Pulse Ox 99% ; ms18 13:52 BP 111 / 53 (auto/); ms18 13:53 Pulse 58 MON; Pulse Ox 96% ; ms18 14:52 BP 104 / 68 (auto/); Resp 18; ms18 14:53 Pulse 60 MON; Pulse Ox 97% ; ms18 15:22 BP 108 / 54 (auto/); ms18 15:26 Pulse 60 MON; Resp 18; Pulse Ox 97% ; ms18 07:51 Body Mass Index 31.06 (103.87 kg, 182.88 cm) ck1 MDM: 08:16 IV Saline Lock ordered. sd1 08:16 NS 0.9% 1000 ml IV at bolus once ordered. sd1 08:17 Metoclopramide 10 mg IV at 40 mg/hr once over 15 mins ordered. sd1 08:17 diphenhydrAMINE 50 mg IVP once ordered. sd1 08:17 CT Head Without Contrast Ordered. EDMS 08:18 CBC Ordered. EDMS 08:18 MED Profile Ordered. EDMS 08:18 ECG WITH READING ER PHYS+CARDIAG ordered. EDMS 09:06 MED Profile Reviewed. sd1 09:06 CBC Reviewed. sd1 09:08 MRI Screening Tool - Place on chart, inform RN ordered. sd1 09:08 -MRI-Brain w/o foll by with Ordered. EDMS 09:20 MRI Screening Tool - Place on chart, inform RN complete. kcs 09:41 Urine Toxicology Ordered. EDMS 09:41 -MRA-Brain without contrast Ordered. EDMS 10:30 CT Head Without Contrast Reviewed. sd1 11:00 Urine Toxicology Reviewed. sd1 11:30 NS 0.9% 1000 ml IV at bolus once ordered. sd1 11:34 ketorolac 30 mg IVP once ordered. sd1 11:34 NS 0.9% 1000 ml IV at 150 mL/hr continuous ordered. sd1 12:24 Admission / Observation Status ordered. EDMS 12:24 REGULAR DIET ordered. EDMS 13:41 [facility] Payment Agreement was scanned into [employer] and attached to record. 5 13:41 Financial registration complete. jp5 11/07 09:16 T-Sheet-- Draft Copy was scanned into [employer] and attached to record. gb 09:17 ECG/EKG was scanned into [employer] and attached to record. gb 09:17 Trend VS was scanned into [employer] and attached to record. gb Administered Medications: 11/06 08:00 Drug: diphenhydrAMINE 50 mg [diphenhydramine 50 mg/mL injection solution (1 mL)] Route: kcs IVP; Site: left antecubital; 12:42 Follow up: Response: No Adverse Reaction ms18 08:38 Drug: NS 0.9% 1000 ml [sodium chloride 0.9 % intravenous solution] Route: IV; Rate: kcs bolus; Site: left antecubital; 11:20 Follow up: IV Status: Completed infusion; IV Intake: 1000ml ms18 08:50 Drug: Metoclopramide 10 mg [metoclopramide 5 mg/mL injection solution] Route: IV; Rate: kcs 40 mg/hr; Infused Over: 15 mins; Site: left antecubital; 10:35 Follow up: IV Status: Completed infusion; IV Intake: 50ml kcs 11:30 Drug: NS 0.9% 1000 ml [sodium chloride 0.9 % intravenous solution] Route: IV; Rate: rs3 bolus; Site: left antecubital; 11:50 Follow up: IV Status: Completed infusion rs3 11:49 Drug: NS 0.9% 1000 ml [sodium chloride 0.9 % intravenous solution] Route: IV; Rate: 150 rs3 mL/hr; Site: left antecubital; 11:50 Drug: ketorolac 30 mg [ketorolac 30 mg/mL (1 mL) injection solution (1 mL)] Route: IVP; rs3 Site: left antecubital; Signatures: Dispatcher [employer] EDRosa Mendez MD MD sd1 Sleeman, Kacey, RN RN kcs Jyoti Hdz, Reg Reg gb Dara MossRN RN ck1 Rosangela Briceño RN RN ms18 Ean Otto jp5 Baylee Johnson RN rs3 The chart was reviewed and I authenticate all verbal orders and agree with the evaluation and treatment provided.Attachments: 13:41 [facility] Payment Agreement jp5 11/07 09:16 T-Sheet-- Draft Copy gb 09:17 ECG/EKG gb Chart Complete MTDD
--- NOTE | 2016-11-08 16:56 | EDDOCDS ---
Nurse's Notes [facility] Name: Kyrie Driver Age: 30 yrs Sex: Male : 1985 Arrival Date: 11/06/2016 Time: 07:44 Bed 17 Private MD: Diagnosis: Headache Presentation: 11/06 07:49 Presenting complaint: Patient states: Sinus pressure, "fluid on my ears, massive ck1 headache from my sinuses to the base of my head". Sates while "putting tools away in his truck, my said I collapsed". Adult Sepsis Screening: The patient does not have new or worsening altered mentation. Patient's respiratory rate is less than 22. Systolic blood pressure is greater than 100. Patient has a qSOFA score of 0- Negative Sepsis Screen. Suicide/Homicide risk assessment- the patient denies having any suicidal and/or homicidal ideations and does not present with any other emotional, behavioral or mental health complaints. Status: The patient is an active duty food service clerk. Transition of care: patient was not received from another setting of care. 07:49 Acuity: KENNY Level 3 ck1 07:49 Method Of Arrival: Wheelchair ck1 Triage Assessment: 07:54 General: Appears in no apparent distress, comfortable, Behavior is appropriate for age, ck1 cooperative. Pain: Location: head and neck Pain currently is 7 out of 10 on a pain scale. HIV screening NA for this visit Offered previously. Neurological: Level of Consciousness is awake, alert, obeys commands, Oriented to person, place, time. Neurological: Reports dizziness. Respiratory: Respiratory effort is unlabored, Respiratory pattern is regular, symmetrical. GI: Reports nausea. Derm: Skin is pink, warm & dry. Historical: - Allergies: No known drug Allergies; - Home Meds: 1. none - PMHx: none; - PSHx: PRK Eye Surgery; bone graft from hip to Jaw; Vasectomy; oral surgery; Appendectomy; - Social history: Smoking status: Patient states former smoker of tobacco. No barriers to communication noted, The patient speaks fluent Chadian, Speaks appropriately for age. - Family history: Not pertinent. - : The pt / caregiver states he / she is not on anticoagulants. Home medication list is obtained from the patient. - Exposure Risk Screening:: None identified. Screenin:38 Screening information is obtained from the patient. Fall risk: At risk due to ms18 dizziness. Assistance ADL's: requires no assistance with activities of daily living. Abuse/DV Screen: The patient / caregiver reports he/she is: not in a situation that causes fear, pain or injury. Nutritional screening: No deficits noted. Advance Directives: There is no living will. home support is adequate. Assessment: 08:20 General: Appears comfortable, well developed, well nourished, well groomed, Behavior is kcs cooperative, pleasant. Pain: Location: back of head to neck Pain currently is 3 out of 10 on a pain scale. Neurological: Level of Consciousness is awake, alert, Oriented to person, place, time, Moves all extremities. Gait is unsteady, Speech is normal. Respiratory: Airway is patent Respiratory effort is even, unlabored, Respiratory pattern is regular, symmetrical. Derm: Skin is intact, is healthy with good turgor, Skin is dry, Skin is normal. 09:00 Reassessment: Patient returned from CT - sleepy - responds easily to voice - states kcs headache is mostly gone. monitor and storage bin tender = sinus jeremias. Respirations easy. Siderails up and call light on rail. Lamar applied.. 09:41 Reassessment: Patient states as long as he is flat his headache is mostly gone = 1/10. kcs Respirations easy. Color = pink. Skin = warm and dry. . 10:29 Reassessment: Patient returned from MRI via stretcher. Lying flat on stretcher. States kcs headache is mostly gone. IV bolus reconnected and infusing. Sleepy. Respirations easy. quality assurance monitor chassis = sinus jeremias. Siderails up and call light on rail.. 11:29 General: Appears in no apparent distress, comfortable, to be sleeping. Behavior is ms18 quiet. General: NS bolus done at this time. Pt sleeping at this time. Will continue to monitor pt. Cardiovascular: Rhythm is sinus bradycardia. Respiratory: Airway is patent Respiratory effort is even, unlabored. Derm: Skin is pink, warm & dry. normal. 12:45 General: Appears in no apparent distress, comfortable, Behavior is appropriate for age, ms18 cooperative, pleasant, Room assignment received at this time, room 3215. Will send SBAR at this time. Admission Rn at bedside. Will continue to monitor pt. Pain: Denies pain. Neurological: Level of Consciousness is awake, alert, obeys commands, Oriented to person, place, time, Moves all extremities. Speech is normal. Cardiovascular: Rhythm is sinus rhythm. Respiratory: Airway is patent Respiratory effort is even, unlabored, Respiratory pattern is regular, symmetrical. GI: Abdomen is non- distended. Derm: Skin is pink, warm & dry. normal. 13:10 General: Called to PCU, SBAR received. RN busy with a procedure at this time. Will call ms18 when ready for pt. 13:52 General: Called PCU to ask if the RN was ready for the pt. Was told that they just ms18 started the procedure and the RN was busy with that. Will continue to monitor pt. . 14:28 General: Appears in no apparent distress, comfortable, Behavior is appropriate for age, ms18 cooperative, pleasant, Pt was able to eat his lunch tray. Pt in no acute distress. Awaiting PCU to be ready for the pt. Will continue to monitor pt. Respiratory: No deficits noted. Derm: Skin is pink, warm & dry. normal. 15:15 General: Appears in no apparent distress, comfortable, Behavior is appropriate for age, ms18 cooperative, pleasant, PT can go to PCU in approx 20 mins. . Pain: Denies pain. Neurological: Level of Consciousness is awake, alert, obeys commands, Oriented to person, place, time. Respiratory: No deficits noted. Derm: Skin is pink, warm & dry. 15:37 General: Appears in no apparent distress, comfortable, Behavior is appropriate for age, ms18 cooperative, pleasant. Pain: Denies pain. Neurological: Level of Consciousness is awake, alert, obeys commands, Oriented to person, place, time. Respiratory: No deficits noted. Derm: Skin is pink, warm & dry. normal. Vital Signs: 07:51 BP 136 / 81; Pulse 70; Resp 18; Temp 96.5(O); Pulse Ox 95% on R/A; Weight 103.87 kg ck1 (R); Height 72 in. (182.88 cm) (R); Pain 7/10; 08:51 BP 131 / 70 (auto/); kcs 08:52 Pulse 52 MON; Pulse Ox 97% ; kcs 09:24 Pulse 56 MON; ms18 09:25 BP 107 / 65 (auto/); ms18 09:41 BP 107 / 65; Pulse 64; Resp 16; Pulse Ox 97% on R/A; Pain 1/10; kcs 10:18 BP 110 / 68 (auto/); kcs 10:19 Pulse 68 MON; Pulse Ox 97% ; kcs 10:22 BP 122 / 58 (auto/); kcs 10:22 Pulse 56 MON; Resp 16; Pulse Ox 96% ; kcs 10:52 BP 118 / 56 (auto/); ms18 10:53 Pulse 56 MON; Pulse Ox 98% ; ms18 11:22 BP 122 / 75 (auto/); ms18 11:23 Pulse 52 MON; Pulse Ox 97% ; ms18 11:52 BP 112 / 69 (auto/); ms18 11:53 Pulse 62 MON; Pulse Ox 97% ; ms18 12:37 BP 115 / 66 (auto/); ms18 12:38 BP 115 / 66; Pulse 60 MON; Resp 18; Temp 96.7(O); Pulse Ox 98% ; Pain 0/10; ms18 12:52 BP 120 / 60 (auto/); ms18 12:53 Pulse 58 MON; Pulse Ox 99% ; ms18 13:52 BP 111 / 53 (auto/); ms18 13:53 Pulse 58 MON; Pulse Ox 96% ; ms18 14:52 BP 104 / 68 (auto/); Resp 18; ms18 14:53 Pulse 60 MON; Pulse Ox 97% ; ms18 15:22 BP 108 / 54 (auto/); ms18 15:26 Pulse 60 MON; Resp 18; Pulse Ox 97% ; ms18 07:51 Body Mass Index 31.06 (103.87 kg, 182.88 cm) ck1 Vitals: 07:51 Log In Time: November 06, 2016 at 07:46. ck1 ED Course: 07:46 Patient visited by Ean Otto. jp5 07:46 Patient moved to Waiting jp5 07:51 Triage Initiated ck1 07:55 Patient moved to 17 ck1 08:01 Rosa Ozuna MD is Attending Physician. sd1 08:01 Patient visited by Rosa Ozuna MD. sd1 08:20 The patient / caregiver is instructed regarding the plan of care and ED course. kcs 08:25 Inserted saline lock: 20 gauge in left antecubital area The patient tolerated the kcs procedure well. 08:30 MED Profile Sent. kcs 08:30 CBC Sent. kcs 08:38 EKG done. (by ED staff). Reviewed by Rosa Ozuna MD. jrd 09:27 Patient moved to MRI deg 09:35 CT Head Without Contrast Returned. EDMS 10:17 Urine Toxicology Sent. kcs 10:29 Patient moved to 17 kcs 10:35 Patient visited by Alicia Jaimes RN. kcs 11:05 Report given to Rosangela Briceño RN. kcs 11:17 Rosangela BriceñoRN is Primary Nurse. ms18 11:29 Patient visited by Rosangela Briceño RN. ms18 11:45 -MRI-Brain w/o foll by with Returned. EDMS 11:45 -MRA-Brain without contrast Returned. EDMS 12:14 Tawanna Jones is Hospitalizing Provider. sd1 12:38 Patient has correct armband on for positive identification. Placed in gown. Bed in low ms18 position. Call light in reach. Side rails up X2. quality assurance monitor chassis on. Pulse ox on. NIBP on. Property :Personal belongings accompany Pt. 12:38 No procedures done that require assistance. ms18 12:43 Patient visited by Rosangela Briceño RN. ms18 13:41 [facility] Payment Agreement was scanned into [employer] and attached to record. jp5 13:52 Patient visited by Rosangela Briceño RN. ms18 15:37 Patient visited by Rosangela Briceño RN. ms18 02/03 09:16 T-Sheet-- Draft Copy was scanned into [employer] and attached to record. gb 09:17 ECG/EKG was scanned into [employer] and attached to record. gb 09:17 Trend VS was scanned into [employer] and attached to record. gb Administered Medications: 02 08:00 Drug: diphenhydrAMINE 50 mg [diphenhydramine 50 mg/mL injection solution (1 mL)] Route: kcs IVP; Site: left antecubital; 12:42 Follow up: Response: No Adverse Reaction ms18 08:38 Drug: NS 0.9% 1000 ml [sodium chloride 0.9 % intravenous solution] Route: IV; Rate: kcs bolus; Site: left antecubital; 11:20 Follow up: IV Status: Completed infusion; IV Intake: 1000ml ms18 08:50 Drug: Metoclopramide 10 mg [metoclopramide 5 mg/mL injection solution] Route: IV; Rate: kcs 40 mg/hr; Infused Over: 15 mins; Site: left antecubital; 10:35 Follow up: IV Status: Completed infusion; IV Intake: 50ml kcs 11:30 Drug: NS 0.9% 1000 ml [sodium chloride 0.9 % intravenous solution] Route: IV; Rate: rs3 bolus; Site: left antecubital; 11:50 Follow up: IV Status: Completed infusion rs3 11:49 Drug: NS 0.9% 1000 ml [sodium chloride 0.9 % intravenous solution] Route: IV; Rate: 150 rs3 mL/hr; Site: left antecubital; 11:50 Drug: ketorolac 30 mg [ketorolac 30 mg/mL (1 mL) injection solution (1 mL)] Route: IVP; rs3 Site: left antecubital; Attachments: 09:17 Trend VS gb Intake: 11/06 10:35 IV: 50.00ml; Total: 50.00ml. kcs 11:20 IV: 1000.00ml; Total: 1050.00ml. ms18 Output: 09:20 Urine: 400.00ml (Voided); Total: 400.00ml. kcs Order Results: Lab Order: CBC; SPEC'M 11/06/16 08:28 Test: WHITE BLOOD COUNT; Value: 5.2; Range: 4.0-10.0; Units: K/mm3; Status: F Test: RED BLOOD COUNT; Value: 5.17; Range: 4.30-6.10; Units: M/mm3; Status: F Test: HEMOGLOBIN; Value: 15.3; Range: 14.0-18.0; Units: g/dl; Status: F Test: HEMATOCRIT; Value: 46.2; Range: 42.0-52.0; Units: %; Status: F Test: MEAN CORPUSCULAR VOLUME; Value: 89.5; Range: 80.0-96.0; Units: fl; Status: F Test: MEAN CORPUSCULAR HEMOGLOBIN; Value: 29.6; Range: 27.0-33.0; Units: pg; Status: F Test: MEAN CORPUSCULAR HGB CONC; Value: 33.1; Range: 32.0-36.5; Units: g/dl; Status: F Test: RED CELL DISTRIBUTION WIDTH; Value: 12.6; Range: 11.5-14.5; Units: %; Status: F Test: PLATELET COUNT, AUTOMATED; Value: 220; Range: 150-450; Units: k/mm3; Status: F Lab Order: MED Profile; SPEC'M 11/06/16 08:28 Test: GLUCOSE, FASTING; Value: 111; Range: 70-105; Abnormal: Above high normal; Units: MG/DL; Status: F Test: BLOOD UREA NITROGEN; Value: 17; Range: 7-18; Units: MG/DL; Status: F Test: CREATININE FOR GFR; Value: 1.27; Range: 0.70-1.30; Units: MG/DL; Status: F Test: GLOMERULAR FILTRATION RATE; Value: > 60.0; Range: >60; Status: F Test: SODIUM LEVEL; Value: 143; Range: 136-145; Units: MEQ/L; Status: F Test: POTASSIUM SERUM; Value: 3.9; Range: 3.5-5.1; Units: MEQ/L; Status: F Test: CHLORIDE LEVEL; Value: 107; Range: 98-107; Units: MEQ/L; Status: F Test: CARBON DIOXIDE LEVEL; Value: 28; Range: 21-32; Units: MEQ/L; Status: F Test: ANION GAP; Value: 8; Range: 8-16; Units: MEQ/L; Status: F Test: CALCIUM LEVEL; Value: 9.2; Range: 8.5-10.1; Units: MG/DL; Status: F Test Note: ; Units are mL/min/1.73 m2 Chronic Kidney Disease Staging per NKF: Stage I & II GFR >=60 Normal to Mildly Decreased Stage III GFR 30-59 Moderately Decreased Stage IV GFR 15-29 Severely Decreased Stage V GFR <15 Very Little GFR Left ESRD GFR <15 on FOOD CLERK Lab Order: Urine Toxicology; SPEC'M 11/06/16 10:20 Test: AMPHETAMINES LEVEL URINE; Value: NEGATIVE; Range: NEGATIVE; Status: F Test: BARBITURATES URINE; Value: NEGATIVE; Range: NEGATIVE; Status: F Test: BENZODIAZEPINES URINE; Value: NEGATIVE; Range: NEGATIVE; Status: F Test: CANNABINOIDS URINE; Value: NEGATIVE; Range: NEGATIVE; Status: F Test: COCAINE METABOLITE URINE; Value: NEGATIVE; Range: NEGATIVE; Status: F Test: METHADONE URINE; Value: NEGATIVE; Range: NEGATIVE; Status: F Test: OPIATES URINE; Value: NEGATIVE; Range: NEGATIVE; Status: F Test: TRICYCLIC ANTIDEPRESS URINE; Value: NEGATIVE; Range: NEGATIVE; Status: F Test Note: ; ALL PRESUMPTIVE POSITIVE FINDINGS ARE UNCONFIRMED NORMAL VALUES THRESHOLD IN NG/ML AMPHETAMINES 1000 METHAMPHETAMINES 1000 BARBITURATES 300 BENZODIAZEPINES 300 CANNABINOIDS (THC) 50 COCAINE METABOLITE 300 METHADONE 300 OPIATES 300 PHENCYCLIDINE 25 TRICYCLIC ANTIDEPRESSANTS 1000 RESULTS ARE FOR MEDICAL PURPOSES ONLY. ALL URINE SPECIMENS WILL BE SAVED FOR 3 DAYS. IF CONFIRMATION OF A PRESUMPTIVE POSTIVE SCREEN RESULT IS DESIRED, CALL CHEMISTRY ([phone]) AND REQUEST URINE TO BE SENT TO REFERENCE LAB. FOR A LIST OF CLOSELY RELATED COMPOUNDS PLEASE CALL THE LAB. Radiology Order: CT Head Without Contrast Test: CT Head Without Contrast REASON FOR EXAMINATION: headache/syncope; CT BRAIN WITHOUT CONTRAST: 11/06/2016; ; COMPARISON: 08/31/2016; ; CLINICAL HISTORY: Headache, syncope.; ; FINDINGS: Lateral ventricles symmetric and without dilatation or displacement.; Third ventricle is slit-like and even more narrow than on the previous study.; The fourth ventricle is also smaller. Basal ganglia are symmetric. Brainstem and; cerebellum show loss of perimesencephalic cisterns and loss of definition. There; appears to be swelling of that posterior fossa. The bailey-white junction; differentiation in the cerebellar hemispheres is maintained. There is no intra; or extra-axial hemorrhage of clearly defined. No definite mass is identified. No; definite infarct identified. Mastoids and visualized sinuses show only minor; ethmoid sinus mucosal thickening. The skull base and calvarium show no fracture; or focal lesion.; ; IMPRESSION:; 1. Interval change in the presentation CT brain with loss of the basilar cistern; patency and suspected swelling in the posterior fossa. Both the; perimesencephalic and suprasellar cisterns are effaced or less apparent. An; isodense mass could not be excluded. No definite hemorrhage. Sinuses show some; minor ethmoid sinus mucosal thickening. No focal bone lesion. I discussed this; with the attending ED physician. MR recommended.; ; ; ; ; ; ; Unreviewed; Radiology Order: -MRI-Brain w/o foll by with Test: -MRI-Brain w/o foll by with REASON FOR EXAMINATION: posterior fossa edema on CT; MRI BRAIN WITHOUT WITH CONTRAST: 11/06/2016; ; COMPARISON: CT brain 11/06/2016, 08/31/2016, MRA brain today.; ; CLINICAL HISTORY: Dizziness, weakness, posterior fossa edema on CT.; ; TECHNIQUE: Axial T1, T2, FLAIR, diffusion weighted images with ADC mapping; sequences were provided along with sagittal T1 sequence. After infusion of; ProHance 21 mL, axial and coronal T1 sequences performed.; ; FINDINGS: Lateral ventricles are symmetric and without dilatation or; displacement. Slit-like third ventricle and fourth ventricle smaller than on the; CT in August,. T1 images show no evidence of extra-axial fluid collection; or hemorrhage. The T2 and FLAIR images show slight prominence and hyperintensity; of the dura with some dural thickening and the enhanced images show increased; dural enhancement diffusely. The basal ganglia are symmetric and unremarkable.; Sylvian fissures are effaced compared to the CT in August. The bailey-white; junction differentiation is maintained. Cortical stripe preserved. There is no; atrophy or visible mass. Diffusion-weighted images and ADC mapping sequences; show no evidence of acute ischemia or restricted water diffusion. After contrast; administration, there is no gyriform enhancement, enhancing mass or vascular; lesion. However there does appear to be some increased enhancement of the dura.; The brainstem and cerebellum show no atrophy. The quadrigeminal plate cisterns; are mostly effaced. No definite cerebellar tonsillar ectopia. Seventh and; eighth cranial nerve complexes are symmetric and normal. There is ethmoid sinus; mucosal thickening and some mucosal thickening in the floor of both maxillary; sinuses. The small mucous retention cyst or polyp in the anterior wall on the; left. Frontal sinuses are grossly clear as are the sphenoid sinuses. Orbits and; contents symmetric. Corpus callosum, optic chiasm and pituitary are intact.; There is no gyriform enhancement or enhancing mass visible in the cerebral or; cerebellar hemispheres or brainstem.; ; IMPRESSION:; 1. Pattern of effacement of the basal cisterns and sylvian fissures. I do not; see focal edema or mass within the brainstem, cerebellum or cerebral; hemispheres. No abnormal enhancement or restricted water diffusion on; diffusion-weighted images.; ; 2. Slight prominence of hyperintense T2 and FLAIR dural signal and some dural; enhancement that might reflect some meningitis, nonspecific. No nodular; enhancement of the dura or MR evidence for encephalitis at this time.; ; 3. The seventh/eighth cranial nerve complexes and mastoids intact. Sinus; mucosal thickening as described. Findings were discussed with the consulting; neurosurgeon by phone at the time of this dictation.; ; ; ; ; ; ; Unreviewed; Radiology Order: -MRA-Brain without contrast Test: -MRA-Brain without contrast REASON FOR EXAMINATION: concern for vascular abnormlaity per Dr. Townsend; MRA of the brain without contrast, 11/06/2016:; ; Clinical history: Evaluate for vascular abnormality. Brain swelling.; ; 3-D [id number] gradient echo with MIP reformatting and rotational display of; the volume acquisition and reconstructions about the longitudinal and horizontal; axis of the brain. All source images are reviewed. Vertebral artery shows; symmetric contribution and formation of the basilar artery. There is no basilar; stenosis or aneurysm. Both posterior cerebral arteries arise from the basilar; tip. The posterior cerebral arteries are symmetric in their supply to the; posterior fossa and normal. The right and left internal carotids through the; skull base to the carotid siphons are unremarkable. The cavernous portions and; supraclinoid internal carotids were unremarkable. The A1 segments show slightly; larger right than left size but this is a normal variant. There is no focal; stenosis. The bilateral M1 segments were symmetric. Trifurcation vessels of the; middle cerebrals and the anterior cerebral branches were grossly unremarkable.; ; All source images are reviewed and confirm the absence of findings.; ; Impression:; 1. Normal MR angiogram of the brain. No aneurysm, vascular malformation, vessel; cutoff or focal stenosis.; ; ; ; ; Unreviewed; Outcome: 12:14 Decision to Hospitalize by Provider. sd1 12:38 Discharge Assessment: patient administered narcotics - no. The following High Risk ms18 Discharge criteria are identified: None. Admitted to PCU accompanied by nurse, accompanied by tech, via stretcher, on monitor, with chart. Condition: good Condition: stable. CT Study completed. MRI Study completed. Property :Personal belongings accompany Pt. 15:55 Patient left the ED. ms18 Signatures: Dispatcher [employer] EDVT Rosa Ozuna MD MD sd1 Alicia Jaimes RN RN kcs Macie Agustin, [place] Machine Operator Unit deg Barsean, Jyoti, Reg Reg gb Rach-Daniela,Dara,RN RN ck1 Elizabeth,AILYN Baech RN rs3 Rosangela Briceño,RN RN ms18 Fredrick Sams, CHIEF [employer] CHIEF [employer] jrd Ean Otto jp5 Chart Complete MTDD
--- NOTE | 2016-11-08 16:56 | EDDOCDS ---
Physician Documentation [facility] Name: Kyrie Driver Age: 30 yrs Sex: Male : 1985 Arrival Date: 11/06/2016 Time: 07:44 Bed 17 Private MD: Disposition: 11/06/16 12:14 Hospitalization ordered by Tawanna Jones for Inpatient Admission. Preliminary diagnosis is Headache. - Bed requested for PCU. - Status is Inpatient Admission. ms18 - Condition is Stable. - Problem is an ongoing problem. - Symptoms are unchanged. Historical: - Allergies: No known drug Allergies; - Home Meds: 1. none - PMHx: none; - PSHx: PRK Eye Surgery; bone graft from hip to Jaw; Vasectomy; oral surgery; Appendectomy; - Social history: Smoking status: Patient states former smoker of tobacco. No barriers to communication noted, The patient speaks fluent Greek, Speaks appropriately for age. - Family history: Not pertinent. - : The pt / caregiver states he / she is not on anticoagulants. Home medication list is obtained from the patient. - Exposure Risk Screening:: None identified. Vital Signs: 11/06 07:51 BP 136 / 81; Pulse 70; Resp 18; Temp 96.5(O); Pulse Ox 95% on R/A; Weight 103.87 kg / ck1 228.99 lbs (R); Height 72 in. (182.88 cm) (R); Pain 7/10; 08:51 BP 131 / 70 (auto/); kcs 08:52 Pulse 52 MON; Pulse Ox 97% ; kcs 09:24 Pulse 56 MON; ms18 09:25 BP 107 / 65 (auto/); ms18 09:41 BP 107 / 65; Pulse 64; Resp 16; Pulse Ox 97% on R/A; Pain 1/10; kcs 10:18 BP 110 / 68 (auto/); kcs 10:19 Pulse 68 MON; Pulse Ox 97% ; kcs 10:22 BP 122 / 58 (auto/); kcs 10:22 Pulse 56 MON; Resp 16; Pulse Ox 96% ; kcs 10:52 BP 118 / 56 (auto/); ms18 10:53 Pulse 56 MON; Pulse Ox 98% ; ms18 11:22 BP 122 / 75 (auto/); ms18 11:23 Pulse 52 MON; Pulse Ox 97% ; ms18 11:52 BP 112 / 69 (auto/); ms18 11:53 Pulse 62 MON; Pulse Ox 97% ; ms18 12:37 BP 115 / 66 (auto/); ms18 12:38 BP 115 / 66; Pulse 60 MON; Resp 18; Temp 96.7(O); Pulse Ox 98% ; Pain 0/10; ms18 12:52 BP 120 / 60 (auto/); ms18 12:53 Pulse 58 MON; Pulse Ox 99% ; ms18 13:52 BP 111 / 53 (auto/); ms18 13:53 Pulse 58 MON; Pulse Ox 96% ; ms18 14:52 BP 104 / 68 (auto/); Resp 18; ms18 14:53 Pulse 60 MON; Pulse Ox 97% ; ms18 15:22 BP 108 / 54 (auto/); ms18 15:26 Pulse 60 MON; Resp 18; Pulse Ox 97% ; ms18 07:51 Body Mass Index 31.06 (103.87 kg, 182.88 cm) ck1 MDM: 08:16 IV Saline Lock ordered. sd1 08:16 NS 0.9% 1000 ml IV at bolus once ordered. sd1 08:17 Metoclopramide 10 mg IV at 40 mg/hr once over 15 mins ordered. sd1 08:17 diphenhydrAMINE 50 mg IVP once ordered. sd1 08:17 CT Head Without Contrast Ordered. EDMS 08:18 CBC Ordered. EDMS 08:18 MED Profile Ordered. EDMS 08:18 ECG WITH READING ER PHYS+CARDIAG ordered. EDMS 09:06 MED Profile Reviewed. sd1 09:06 CBC Reviewed. sd1 09:08 MRI Screening Tool - Place on chart, inform RN ordered. sd1 09:08 -MRI-Brain w/o foll by with Ordered. EDMS 09:20 MRI Screening Tool - Place on chart, inform RN complete. kcs 09:41 Urine Toxicology Ordered. EDMS 09:41 -MRA-Brain without contrast Ordered. EDMS 10:30 CT Head Without Contrast Reviewed. sd1 11:00 Urine Toxicology Reviewed. sd1 11:30 NS 0.9% 1000 ml IV at bolus once ordered. sd1 11:34 ketorolac 30 mg IVP once ordered. sd1 11:34 NS 0.9% 1000 ml IV at 150 mL/hr continuous ordered. sd1 12:24 Admission / Observation Status ordered. EDMS 12:24 REGULAR DIET ordered. EDMS 13:41 [facility] Payment Agreement was scanned into [employer] and attached to record. 5 13:41 Financial registration complete. jp5 11/07 09:16 T-Sheet-- Draft Copy was scanned into [employer] and attached to record. gb 09:17 ECG/EKG was scanned into [email or web address] and attached to record. gb 09:17 Trend VS was scanned into [employer] and attached to record. gb Administered Medications: 11/06 08:00 Drug: diphenhydrAMINE 50 mg [diphenhydramine 50 mg/mL injection solution (1 mL)] Route: kcs IVP; Site: left antecubital; 12:42 Follow up: Response: No Adverse Reaction ms18 08:38 Drug: NS 0.9% 1000 ml [sodium chloride 0.9 % intravenous solution] Route: IV; Rate: kcs bolus; Site: left antecubital; 11:20 Follow up: IV Status: Completed infusion; IV Intake: 1000ml ms18 08:50 Drug: Metoclopramide 10 mg [metoclopramide 5 mg/mL injection solution] Route: IV; Rate: kcs 40 mg/hr; Infused Over: 15 mins; Site: left antecubital; 10:35 Follow up: IV Status: Completed infusion; IV Intake: 50ml kcs 11:30 Drug: NS 0.9% 1000 ml [sodium chloride 0.9 % intravenous solution] Route: IV; Rate: rs3 bolus; Site: left antecubital; 11:50 Follow up: IV Status: Completed infusion rs3 11:49 Drug: NS 0.9% 1000 ml [sodium chloride 0.9 % intravenous solution] Route: IV; Rate: 150 rs3 mL/hr; Site: left antecubital; 11:50 Drug: ketorolac 30 mg [ketorolac 30 mg/mL (1 mL) injection solution (1 mL)] Route: IVP; rs3 Site: left antecubital; Signatures: Dispatcher [employer] EDRosa Mendez MD MD sd1 Sleeman, Kacey, RN RN kcs Jyoti Hdz, Reg Reg gb Dara MossRN RN ck1 Rosangela Briceño RN RN ms18 Ean Otto jp5 Baylee Johnson RN rs3 The chart was reviewed and I authenticate all verbal orders and agree with the evaluation and treatment provided.Attachments: 13:41 [facility] Payment Agreement jp5 11/07 09:16 T-Sheet-- Draft Copy gb 09:17 ECG/EKG gb Chart Complete MTDD
[2016-11-08 20:17] VITALS: BP 116/68
[2016-11-08] MEDS: ZONISAMIDE 50 MG CAP (ZONEGRAN) PO SCH (20:56)
--- NOTE | 2016-11-08 21:42 | IPNPDOC ---
Assessment/Plan Date Seen The patient was seen on 11/08/16. Problems Problems: (1) Headache Status: Acute Problem Text: * pt still complaining of headaches, worse with sitting up or standing * he was evaluated by Dr Figueroa who recommended continue IV hydration, caffeine and bed rest * CT face and maxillary showed no cribriform plate fracture * lumbar punture in am (2) Episode of syncope Status: Resolved Problem Text: * unwitnessed, found patient passed out outside * continue to monitor on tele to rule out cardiac arrhythmia Plan / VTE VTE Prophylaxis Ordered?: Yes Subjective Review of Systems CC/HPI The patient is a 30-year-old male admitted with a reason for visit of Headache. ENT: Reports: Head Aches, Denies: Dysphagia, Ear Pain Cardiovascular: Denies: Chest Pain, Lt Headedness, Orthopnea, Palpitations, Paroxysmal Noc. Dyspnea Gastrointestinal: Denies: Abdominal Pain, Diarrhea, Nausea, Vomiting Objective Physical Examination General Exam: Positive: Alert, No Acute Distress Eye Exam: Positive: Conjunctiva & lids normal, PERRLA Chest Exam: Positive: Clear to auscultation, Normal air movement Heart Exam: Positive: Normal S1, Normal S2, Rate Normal, Regular Rhythm, Negative: Murmurs, Rubs Abdomen Exam: Positive: Normal bowel sounds, Soft, Negative: Hepatospenomegaly, Tenderness Extremity Exam: Positive: Normal pulses, Negative: Clubbing, Cyanosis, Edema Neuro Exam: Positive: Cranial Nerves 3-12 NL, Normal Speech Vital Signs/I&O Vital Signs Date Time Temp Pulse Resp B/P Pulse Ox O2 Delivery O2 Flow Rate FiO2 11/08/16 21:13 18 97 Room Air 11/08/16 20:17 97.2 62 116/68 I&O- Last 24 Hours up to 6 AM 11/08/16 06:00 Intake Total 3990 ml Output Total 4925 ml Balance -935 ml Laboratory Data Labs 24H Laboratory Tests 2 11/08/16 04:57: Blood Urea Nitrogen 14, Creatinine 1.20, Sodium Level 142, Potassium Level 4.1, Chloride Level 110H, Carbon Dioxide Level 23, Calcium Level 8.8, Aspartate Amino Transf (AST/SGOT) 19, Alanine Aminotransferase (ALT/SGPT) 39, Alkaline Phosphatase 76, Total Bilirubin 0.4, Total Protein 6.9, Albumin 3.8, Albumin/ Globulin Ratio 1.23, Anion Gap 9, White Blood Count 6.3, Red Blood Count 5.08, Hemoglobin 15.5, Hematocrit 46.8, Mean Corpuscular Volume 92.0, Mean Corpuscular Hemoglobin 30.6, Mean Corpuscular Hemoglobin Concent 33.2, Red Cell Distribution Width 12.5, Platelet Count 216, Neutrophils (%) (Auto) 66.0, Lymphocytes (%) (Auto) 18.1L, Monocytes (%) (Auto) 7.7H, Eosinophils (%) (Auto) 4.1H, Basophils (%) (Auto) 0.5, Neutrophils # (Auto) 4.2, Lymphocytes # (Auto) 1.1L, Monocytes # (Auto) 0.5, Eosinophils # (Auto) 0.2, Basophils # (Auto) 0.0, Glomerular Filtration Rate > 60.0, Large Unclassified Cells # 0.2, Large Unclassified Cells % 3.6 CBC/BMP Laboratory Tests 11/08/16 04:57 Calcium Level 8.8, Aspartate Amino Transf (AST/SGOT) 19, Alanine Aminotransferase (ALT/SGPT) 39, Alkaline Phosphatase 76, Total Bilirubin 0.4, Total Protein 6.9, Albumin 3.8, Red Blood Count 5.08, Mean Corpuscular Volume 92.0, Mean Corpuscular Hemoglobin 30.6, Mean Corpuscular Hemoglobin Concent 33.2 , Red Cell Distribution Width 12.5, Neutrophils (%) (Auto) 66.0, Lymphocytes (% ) (Auto) 18.1 L, Monocytes (%) (Auto) 7.7 H, Eosinophils (%) (Auto) 4.1 H, Basophils (%) (Auto) 0.5, Neutrophils # (Auto) 4.2, Lymphocytes # (Auto) 1.1 L, Monocytes # (Auto) 0.5, Eosinophils # (Auto) 0.2, Basophils # (Auto) 0.0 ALYSON LOWRY DO Nov 08, 2016 21:42
[2016-11-08 23:48] VITALS: BP 106/67
[2016-11-09] MEDS: MORPHINE 2 MG/ML 1ML SYRINGE IV PRN ×5 (01:43→21:17)
[2016-11-09 05:22] LABS: BASO % 0.8 % (0.0-1.0); EOS # 0.3 K/mm3 (0.0-0.50); EOS % 5.3 % (0.0-3.0); LARGE UNSTAINED CELL # 0.1 K/mm3 (0.0-0.4); LARGE UNSTAINED CELL % 2.7 % (0.0-4.0); LYMPH # 1.7 K/mm3 (1.5-4.5); LYMPH % 31.3 % (24.0-44.0); MEAN CORPUSCULAR HEMOGLOBIN 30.4 pg (27.0-33.0); MEAN CORPUSCULAR HGB CONC 33.6 g/dl (32.0-36.5); MEAN CORPUSCULAR VOLUME 90.5 fl (80.0-96.0); MONO # 0.4 K/mm3 (0.0-0.8); MONO % 8.1 % (0.0-5.0); NEUTROPHILS # 2.6 K/mm3 (1.8-7.7); NEUTROPHILS % 51.8 % (36.0-66.0); PLATELET COUNT, AUTOMATED 209 k/mm3 (150-450); RED CELL DISTRIBUTION WIDTH 12.6 % (11.5-14.5)
[2016-11-09 05:33] LABS: ALBUMIN 3.7 GM/DL (3.2-5.2); ALBUMIN/GLOBULIN RATIO 1.06 (1.00-1.93); ALKALINE PHOSPHATASE 81 U/L (45-117); ALT/SGPT 46 U/L (12-78); ANION GAP 10 MEQ/L (8-16); AST/SGOT 21 U/L (15-37); BILIRUBIN,TOTAL 0.4 MG/DL (0.2-1.0); BLOOD UREA NITROGEN 16 MG/DL (7-18); CALCIUM LEVEL 8.6 MG/DL (8.5-10.1); CARBON DIOXIDE LEVEL 21 MEQ/L (21-32); CHLORIDE LEVEL 110 MEQ/L (98-107); GLOMERULAR FILTRATION RATE > 60.0 (>60); GLUCOSE, FASTING 106 MG/DL (70-105); POTASSIUM SERUM 3.9 MEQ/L (3.5-5.1); SODIUM LEVEL 141 MEQ/L (136-145); TOTAL PROTEIN 7.2 GM/DL (6.4-8.2)
[2016-11-09 05:36] VITALS: BP 105/56
[2016-11-09 08:00] VITALS: BP 98/57
[2016-11-09] MEDS: NS 1,000 ML IV SCH ×2 (08:03→17:06)
[2016-11-09] MEDS: ZONISAMIDE 50 MG CAP (ZONEGRAN) PO SCH ×2 (08:03→21:16)
--- NOTE | 2016-11-09 09:42 | IPNPDOC ---
Assessment/Plan Date Seen The patient was seen on 11/09/16. Problems Problems: (1) Headache Status: Acute Problem Text: * pt still complaining of headaches, worse with sitting up or standing * Neurosurgery and neurology are both consulted * MRI of entire spine was done and showed no evidence of leak * Dr Townsend recommended LP with blood patch at lumbar level and later at cervical and thoracic, he doesn't do blood patch * will wait till thursday to consult IR, pain management or anesthesia to do blood patch (2) Episode of syncope Status: Resolved Problem Text: * unwitnessed, found patient passed out outside * continue to monitor on tele to rule out cardiac arrhythmia Plan / VTE VTE Prophylaxis Ordered?: Yes Subjective Review of Systems CC/HPI The patient is a 30-year-old male admitted with a reason for visit of Headache. Events since last encounter pt seen and examined, states he still has a headache when he sits up or stand, no other symptoms but has been taking morphine every 4 hours Objective Physical Examination General Exam: Positive: Alert, No Acute Distress Eye Exam: Positive: Conjunctiva & lids normal, PERRLA Chest Exam: Positive: Clear to auscultation, Normal air movement Heart Exam: Positive: Normal S1, Normal S2, Rate Normal, Regular Rhythm, Negative: Murmurs, Rubs Abdomen Exam: Positive: Normal bowel sounds, Soft, Negative: Hepatospenomegaly, Tenderness Extremity Exam: Positive: Normal pulses, Negative: Clubbing, Cyanosis, Edema Neuro Exam: Positive: Cranial Nerves 3-12 NL, Normal Speech Vital Signs/I&O Vital Signs Date Time Temp Pulse Resp B/P Pulse Ox O2 Delivery O2 Flow Rate FiO2 11/09/16 09:10 18 11/09/16 08:00 96.0 55 98/57 98 Room Air I&O- Last 24 Hours up to 6 AM 11/09/16 06:00 Intake Total 3520 ml Output Total 4725 ml Balance -1205 ml Laboratory Data Labs 24H Laboratory Tests 2 11/09/16 04:56: Blood Urea Nitrogen 16, Creatinine 1.30, Sodium Level 141, Potassium Level 3.9, Chloride Level 110H, Carbon Dioxide Level 21, Calcium Level 8.6, Aspartate Amino Transf (AST/SGOT) 21, Alanine Aminotransferase (ALT/SGPT) 46, Alkaline Phosphatase 81, Total Bilirubin 0.4, Total Protein 7.2, Albumin 3.7, Albumin/ Globulin Ratio 1.06, Anion Gap 10, White Blood Count 5.0, Red Blood Count 5.08, Hemoglobin 15.5, Hematocrit 46.0, Mean Corpuscular Volume 90.5, Mean Corpuscular Hemoglobin 30.4, Mean Corpuscular Hemoglobin Concent 33.6, Red Cell Distribution Width 12.6, Platelet Count 209, Neutrophils (%) (Auto) 51.8, Lymphocytes (%) (Auto) 31.3, Monocytes (%) (Auto) 8.1H, Eosinophils (%) (Auto) 5.3H, Basophils (%) (Auto) 0.8, Neutrophils # (Auto) 2.6, Lymphocytes # (Auto) 1.7, Monocytes # (Auto) 0.4, Eosinophils # (Auto) 0.3, Basophils # (Auto) 0.0, Glomerular Filtration Rate > 60.0, Large Unclassified Cells # 0.1, Large Unclassified Cells % 2.7 CBC/BMP Laboratory Tests 11/09/16 04:56 Calcium Level 8.6, Aspartate Amino Transf (AST/SGOT) 21, Alanine Aminotransferase (ALT/SGPT) 46, Alkaline Phosphatase 81, Total Bilirubin 0.4, Total Protein 7.2, Albumin 3.7, Red Blood Count 5.08, Mean Corpuscular Volume 90.5, Mean Corpuscular Hemoglobin 30.4, Mean Corpuscular Hemoglobin Concent 33.6 , Red Cell Distribution Width 12.6, Neutrophils (%) (Auto) 51.8, Lymphocytes (% ) (Auto) 31.3, Monocytes (%) (Auto) 8.1 H, Eosinophils (%) (Auto) 5.3 H, Basophils (%) (Auto) 0.8, Neutrophils # (Auto) 2.6, Lymphocytes # (Auto) 1.7, Monocytes # (Auto) 0.4, Eosinophils # (Auto) 0.3, Basophils # (Auto) 0.0 ALYSON LOWRY DO Nov 09, 2016 09:42
[2016-11-09] MEDS ORDERED: LIDOCAINE 1% MDV 20ML VIAL As Ordered ONE (10:02)
[2016-11-09 12:00] VITALS: BP 133/67
[2016-11-09 16:00] VITALS: BP 124/64
[2016-11-09 20:26] VITALS: BP 123/68
[2016-11-10 00:20] VITALS: BP 108/61
[2016-11-10] MEDS: NS 1,000 ML IV SCH ×3 (02:26→20:44)
[2016-11-10 05:05] VITALS: BP 108/56
[2016-11-10 05:22] LABS: BASO % 1.1 % (0.0-1.0); EOS # 0.3 K/mm3 (0.0-0.50); EOS % 5.3 % (0.0-3.0); LARGE UNSTAINED CELL # 0.2 K/mm3 (0.0-0.4); LYMPH # 1.7 K/mm3 (1.5-4.5); LYMPH % 32.3 % (24.0-44.0); MEAN CORPUSCULAR HEMOGLOBIN 30.4 pg (27.0-33.0); MEAN CORPUSCULAR HGB CONC 34.2 g/dl (32.0-36.5); MONO # 0.3 K/mm3 (0.0-0.8); MONO % 7.1 % (0.0-5.0); NEUTROPHILS # 2.4 K/mm3 (1.8-7.7); NEUTROPHILS % 50.2 % (36.0-66.0); PLATELET COUNT, AUTOMATED 226 k/mm3 (150-450); WHITE BLOOD COUNT 4.8 K/mm3 (4.0-10.0)
[2016-11-10] MEDS: MORPHINE 2 MG/ML 1ML SYRINGE IV PRN ×5 (05:23→21:18)
[2016-11-10 05:31] LABS: ALBUMIN 3.6 GM/DL (3.2-5.2); ALBUMIN/GLOBULIN RATIO 1.06 (1.00-1.93); ALKALINE PHOSPHATASE 74 U/L (45-117); ALT/SGPT 40 U/L (12-78); ANION GAP 7 MEQ/L (8-16); AST/SGOT 18 U/L (15-37); BILIRUBIN,TOTAL 0.4 MG/DL (0.2-1.0); BLOOD UREA NITROGEN 16 MG/DL (7-18); CALCIUM LEVEL 8.5 MG/DL (8.5-10.1); CARBON DIOXIDE LEVEL 23 MEQ/L (21-32); CHLORIDE LEVEL 112 MEQ/L (98-107); CREATININE FOR GFR 1.15 MG/DL (0.70-1.30); GLOMERULAR FILTRATION RATE > 60.0 (>60); GLUCOSE, FASTING 102 MG/DL (70-105); SODIUM LEVEL 142 MEQ/L (136-145)
[2016-11-10 07:25] VITALS: BP 110/55
[2016-11-10] MEDS: ZONISAMIDE 50 MG CAP (ZONEGRAN) PO SCH ×2 (08:47→20:44)
[2016-11-10] MEDS ORDERED: MORPHINE 4 MG/ML 1ML SYRINGE IV PRN (10:30)
--- NOTE | 2016-11-10 11:35 | IPNPDOC ---
Assessment/Plan Date Seen The patient was seen on 11/10/16. Problems Problems: (1) Headache Status: Acute Problem Text: * pt still complaining of headaches, worse with sitting up or standing * Neurosurgery and neurology are both consulted * MRI of entire spine was done and showed no evidence of leak * Dr Townsend recommended LP with blood patch at lumbar level and later at cervical and thoracic, he doesn't do blood patch * spoke with IR who do not do blood patches, spoke with Anesthesia and their response was without knowing exactly where the leak is they can't do a blood patch * Dr Townsend will discuss the possibility of another imaging study (2) Episode of syncope Status: Resolved Problem Text: * unwitnessed, found patient passed out outside * continue to monitor on tele to rule out cardiac arrhythmia Plan / VTE VTE Prophylaxis Ordered?: Yes Subjective Review of Systems CC/HPI The patient is a 30-year-old male admitted with a reason for visit of Headache. Events since last encounter pt seen and examined still having headaches ENT: Reports: Head Aches Neurological: Denies: Change in speech, Confusion, Incoordination, Numbness, Other Symptoms, Seizures, Weakness Objective Physical Examination General Exam: Positive: Alert, No Acute Distress Eye Exam: Positive: Conjunctiva & lids normal, PERRLA Chest Exam: Positive: Clear to auscultation, Normal air movement Heart Exam: Positive: Normal S1, Normal S2, Rate Normal, Regular Rhythm, Negative: Murmurs, Rubs Abdomen Exam: Positive: Normal bowel sounds, Soft, Negative: Hepatospenomegaly, Tenderness Extremity Exam: Positive: Normal pulses, Negative: Clubbing, Cyanosis, Edema Neuro Exam: Positive: Cranial Nerves 3-12 NL, Normal Speech Vital Signs/I&O Vital Signs Date Time Temp Pulse Resp B/P Pulse Ox O2 Delivery O2 Flow Rate FiO2 11/10/16 10:28 18 11/10/16 07:25 96.2 65 110/55 97 Room Air I&O- Last 24 Hours up to 6 AM 11/10/16 06:00 Intake Total 3960 ml Output Total 475 ml Balance 3485 ml Laboratory Data Labs 24H Laboratory Tests 2 11/10/16 04:50: Blood Urea Nitrogen 16, Creatinine 1.15, Sodium Level 142, Potassium Level 4.0, Chloride Level 112H, Carbon Dioxide Level 23, Calcium Level 8.5, Aspartate Amino Transf (AST/SGOT) 18, Alanine Aminotransferase (ALT/SGPT) 40, Alkaline Phosphatase 74, Total Bilirubin 0.4, Total Protein 7.0, Albumin 3.6, Albumin/ Globulin Ratio 1.06, Anion Gap 7L, White Blood Count 4.8, Red Blood Count 5.03, Hemoglobin 15.3, Hematocrit 44.7, Mean Corpuscular Volume 89.0, Mean Corpuscular Hemoglobin 30.4, Mean Corpuscular Hemoglobin Concent 34.2, Red Cell Distribution Width 13.0, Platelet Count 226, Neutrophils (%) (Auto) 50.2, Lymphocytes (%) (Auto) 32.3, Monocytes (%) (Auto) 7.1H, Eosinophils (%) (Auto) 5.3H, Basophils (%) (Auto) 1.1H, Neutrophils # (Auto) 2.4, Lymphocytes # (Auto) 1.7, Monocytes # (Auto) 0.3, Eosinophils # (Auto) 0.3, Basophils # (Auto) 0.0, Glomerular Filtration Rate > 60.0, Large Unclassified Cells # 0.2, Large Unclassified Cells % 4.0 CBC/BMP Laboratory Tests 11/10/16 04:50 Calcium Level 8.5, Aspartate Amino Transf (AST/SGOT) 18, Alanine Aminotransferase (ALT/SGPT) 40, Alkaline Phosphatase 74, Total Bilirubin 0.4, Total Protein 7.0, Albumin 3.6, Red Blood Count 5.03, Mean Corpuscular Volume 89.0, Mean Corpuscular Hemoglobin 30.4, Mean Corpuscular Hemoglobin Concent 34.2 , Red Cell Distribution Width 13.0, Neutrophils (%) (Auto) 50.2, Lymphocytes (% ) (Auto) 32.3, Monocytes (%) (Auto) 7.1 H, Eosinophils (%) (Auto) 5.3 H, Basophils (%) (Auto) 1.1 H, Neutrophils # (Auto) 2.4, Lymphocytes # (Auto) 1.7, Monocytes # (Auto) 0.3, Eosinophils # (Auto) 0.3, Basophils # (Auto) 0.0 ALYSON LOWRY DO Nov 10, 2016 11:35
[2016-11-10 12:00] VITALS: BP 126/65
[2016-11-10 16:00] VITALS: BP 129/71
[2016-11-10 20:00] VITALS: BP 140/77; PULSE 62
[2016-11-11] VITALS (7 sets, daily range): BP systolic 100–137; BP diastolic 61–76; PULSE 50–81
[2016-11-11] MEDS: MORPHINE 2 MG/ML 1ML SYRINGE IV PRN ×4 (00:34→13:15)
[2016-11-11 05:39] LABS: BASO % 0.8 % (0.0-1.0); EOS # 0.2 K/mm3 (0.0-0.50); EOS % 4.7 % (0.0-3.0); LARGE UNSTAINED CELL # 0.1 K/mm3 (0.0-0.4); LARGE UNSTAINED CELL % 2.8 % (0.0-4.0); LYMPH # 1.7 K/mm3 (1.5-4.5); LYMPH % 36.2 % (24.0-44.0); MEAN CORPUSCULAR HEMOGLOBIN 30.3 pg (27.0-33.0); MEAN CORPUSCULAR HGB CONC 34.1 g/dl (32.0-36.5); MEAN CORPUSCULAR VOLUME 88.7 fl (80.0-96.0); MONO # 0.3 K/mm3 (0.0-0.8); MONO % 6.9 % (0.0-5.0); NEUTROPHILS # 2.3 K/mm3 (1.8-7.7); NEUTROPHILS % 48.6 % (36.0-66.0); PLATELET COUNT, AUTOMATED 217 k/mm3 (150-450); RED CELL DISTRIBUTION WIDTH 12.2 % (11.5-14.5); WHITE BLOOD COUNT 4.7 K/mm3 (4.0-10.0)
[2016-11-11 05:56] LABS: ALBUMIN 3.5 GM/DL (3.2-5.2); ALBUMIN/GLOBULIN RATIO 1.17 (1.00-1.93); ALKALINE PHOSPHATASE 70 U/L (45-117); ALT/SGPT 43 U/L (12-78); ANION GAP 10 MEQ/L (8-16); AST/SGOT 20 U/L (15-37); BILIRUBIN,TOTAL 0.6 MG/DL (0.2-1.0); BLOOD UREA NITROGEN 14 MG/DL (7-18); CALCIUM LEVEL 8.4 MG/DL (8.5-10.1); CARBON DIOXIDE LEVEL 24 MEQ/L (21-32); CHLORIDE LEVEL 110 MEQ/L (98-107); CREATININE FOR GFR 1.15 MG/DL (0.70-1.30); GLOMERULAR FILTRATION RATE > 60.0 (>60); GLUCOSE, FASTING 96 MG/DL (70-105); POTASSIUM SERUM 3.8 MEQ/L (3.5-5.1); SODIUM LEVEL 144 MEQ/L (136-145); TOTAL PROTEIN 6.5 GM/DL (6.4-8.2)
[2016-11-11] MEDS: ZONISAMIDE 50 MG CAP (ZONEGRAN) PO SCH ×2 (08:13→20:07)
[2016-11-11] MEDS: NS 1,000 ML IV SCH ×2 (13:14→20:07)
--- NOTE | 2016-11-11 13:25 | IPNPDOC ---
Date Seen The patient was seen on 11/11/16. Subjective CC/HPI The patient is a 30-year-old male admitted with a reason for visit of Headache. Events since last encounter no new complaints. Objective General Exam: Positive: Alert, No Acute Distress Eye Exam: Positive: Conjunctiva & lids normal, PERRLA Chest Exam: Positive: Clear to auscultation, Normal air movement Heart Exam: Positive: Normal S1, Normal S2, Rate Normal, Regular Rhythm, Negative: Murmurs, Rubs Abdomen Exam: Positive: Normal bowel sounds, Soft, Negative: Hepatospenomegaly, Tenderness Extremity Exam: Positive: Normal pulses, Negative: Clubbing, Cyanosis, Edema Neuro Exam: Positive: Cranial Nerves 3-12 NL, Normal Speech Problems (1) Headache Status: Acute Problem Text: * pt still complaining of headaches, worse with sitting up or standing * Possibility of Of low ICP / CSF leak headache is entertained. * Neurosurgery and neurology are both consulted * MRI of entire spine was done and showed no evidence of leak * Dr Townsend recommended LP with blood patch at lumbar level and later at cervical and thoracic, he doesn't do blood patch * spoke with IR who do not do blood patches, spoke with Anesthesia and their response was without knowing exactly where the leak is they can't do a blood patch * Now ordered for cisternogram by NM to look for any csf leak (2) Episode of syncope Status: Resolved Problem Text: * unwitnessed, found patient passed out outside * continue to monitor on tele to rule out cardiac arrhythmia Plan/VTE VTE Prophylaxis Ordered?: Yes VS, I&O, 24H, Fishbone Vital Signs Date Time Temp Pulse Resp B/P Pulse Ox O2 Delivery O2 Flow Rate FiO2 11/11/16 13:15 20 11/11/16 07:30 96.0 53 117/65 96 Room Air I&O- Last 24 Hours up to 6 AM 11/11/16 06:00 Intake Total 2460 ml Output Total 2100 ml Balance 360 ml Laboratory Tests 2 11/11/16 05:20: Blood Urea Nitrogen 14, Creatinine 1.15, Sodium Level 144, Potassium Level 3.8, Chloride Level 110H, Carbon Dioxide Level 24, Calcium Level 8.4L, Aspartate Amino Transf (AST/SGOT) 20, Alanine Aminotransferase (ALT/SGPT) 43, Alkaline Phosphatase 70, Total Bilirubin 0.6, Total Protein 6.5, Albumin 3.5, Albumin/ Globulin Ratio 1.17, Anion Gap 10, White Blood Count 4.7, Red Blood Count 4.92, Hemoglobin 14.9, Hematocrit 43.7, Mean Corpuscular Volume 88.7, Mean Corpuscular Hemoglobin 30.3, Mean Corpuscular Hemoglobin Concent 34.1, Red Cell Distribution Width 12.2, Platelet Count 217, Neutrophils (%) (Auto) 48.6, Lymphocytes (%) (Auto) 36.2, Monocytes (%) (Auto) 6.9H, Eosinophils (%) (Auto) 4.7H, Basophils (%) (Auto) 0.8, Neutrophils # (Auto) 2.3, Lymphocytes # (Auto) 1.7, Monocytes # (Auto) 0.3, Eosinophils # (Auto) 0.2, Basophils # (Auto) 0.0, Glomerular Filtration Rate > 60.0, Large Unclassified Cells # 0.1, Large Unclassified Cells % 2.8 Laboratory Tests 11/11/16 05:20 Calcium Level 8.4 L, Aspartate Amino Transf (AST/SGOT) 20, Alanine Aminotransferase (ALT/SGPT) 43, Alkaline Phosphatase 70, Total Bilirubin 0.6, Total Protein 6.5, Albumin 3.5, Red Blood Count 4.92, Mean Corpuscular Volume 88.7, Mean Corpuscular Hemoglobin 30.3, Mean Corpuscular Hemoglobin Concent 34.1 , Red Cell Distribution Width 12.2, Neutrophils (%) (Auto) 48.6, Lymphocytes (% ) (Auto) 36.2, Monocytes (%) (Auto) 6.9 H, Eosinophils (%) (Auto) 4.7 H, Basophils (%) (Auto) 0.8, Neutrophils # (Auto) 2.3, Lymphocytes # (Auto) 1.7, Monocytes # (Auto) 0.3, Eosinophils # (Auto) 0.2, Basophils # (Auto) 0.0 LISBET MADSEN MD Nov 11, 2016 13:25
[2016-11-11] MEDS: MORPHINE 10 MG/ML 1ML VIAL IV PRN ×2 (15:29→20:09)
[2016-11-12] VITALS (8 sets, daily range): BP systolic 120–133; BP diastolic 58–68; PULSE 60–71
[2016-11-12] MEDS: MORPHINE 2 MG/ML 1ML SYRINGE IV PRN ×2 (00:41→07:53)
[2016-11-12 05:45] LABS: BASO % 0.4 % (0.0-1.0); EOS # 0.2 K/mm3 (0.0-0.50); LARGE UNSTAINED CELL # 0.1 K/mm3 (0.0-0.4); LARGE UNSTAINED CELL % 2.3 % (0.0-4.0); LYMPH # 1.5 K/mm3 (1.5-4.5); LYMPH % 29.2 % (24.0-44.0); MEAN CORPUSCULAR HGB CONC 34.3 g/dl (32.0-36.5); MEAN CORPUSCULAR VOLUME 87.4 fl (80.0-96.0); MONO # 0.4 K/mm3 (0.0-0.8); MONO % 7.7 % (0.0-5.0); NEUTROPHILS # 2.9 K/mm3 (1.8-7.7); NEUTROPHILS % 56.4 % (36.0-66.0); PLATELET COUNT, AUTOMATED 222 k/mm3 (150-450); RED CELL DISTRIBUTION WIDTH 12.2 % (11.5-14.5); WHITE BLOOD COUNT 5.2 K/mm3 (4.0-10.0)
[2016-11-12 05:59] LABS: ALBUMIN 3.5 GM/DL (3.2-5.2); ALBUMIN/GLOBULIN RATIO 1.21 (1.00-1.93); ALKALINE PHOSPHATASE 72 U/L (45-117); ALT/SGPT 42 U/L (12-78); ANION GAP 9 MEQ/L (8-16); AST/SGOT 19 U/L (15-37); BILIRUBIN,TOTAL 0.4 MG/DL (0.2-1.0); BLOOD UREA NITROGEN 15 MG/DL (7-18); CALCIUM LEVEL 8.5 MG/DL (8.5-10.1); CARBON DIOXIDE LEVEL 25 MEQ/L (21-32); CHLORIDE LEVEL 108 MEQ/L (98-107); GLOMERULAR FILTRATION RATE > 60.0 (>60); GLUCOSE, FASTING 96 MG/DL (70-105); POTASSIUM SERUM 3.7 MEQ/L (3.5-5.1); SODIUM LEVEL 142 MEQ/L (136-145); TOTAL PROTEIN 6.4 GM/DL (6.4-8.2)
[2016-11-12] MEDS: ZONISAMIDE 50 MG CAP (ZONEGRAN) PO SCH ×2 (07:53→20:17)
[2016-11-12] MEDS: oxyCODONE 10 MG CR TAB PO SCH ×2 (11:51→20:18)
--- NOTE | 2016-11-12 13:24 | IPNPDOC ---
Subjective General Date Seen The patient was seen on 11/12/16. Chief Complaint/HPI The patient is a 30-year-old male admitted with a reason for visit of Headache. Subjective Events since last encounter no complaints. Objective Physical Examination General Exam: Positive: Alert, No Acute Distress Eye Exam: Positive: Conjunctiva & lids normal, PERRLA Chest Exam: Positive: Clear to auscultation, Normal air movement Heart Exam: Positive: Normal S1, Normal S2, Rate Normal, Regular Rhythm, Negative: Murmurs, Rubs Abdomen Exam: Positive: Normal bowel sounds, Soft, Negative: Hepatospenomegaly, Tenderness Extremity Exam: Positive: Normal pulses, Negative: Clubbing, Cyanosis, Edema Neuro Exam: Positive: Cranial Nerves 3-12 NL, Normal Speech Assessment /Plan Problems Problems: (1) Headache Status: Acute Problem Text: * pt still complaining of headaches, worse with sitting up or standing * Possibility of Of low ICP / CSF leak headache is entertained. * Neurosurgery and neurology are both consulted * MRI of entire spine was done and showed no evidence of leak * Dr Townsend recommended LP with blood patch at lumbar level and later at cervical and thoracic, he doesn't do blood patch * spoke with IR who do not do blood patches, spoke with Anesthesia and their response was without knowing exactly where the leak is they can't do a blood patch * Now ordered for cisternogram by NM to look for any csf leak (2) Episode of syncope Status: Resolved Problem Text: * unwitnessed, found patient passed out outside * continue to monitor on tele to rule out cardiac arrhythmia Plan/VTE VTE Prophylaxis Ordered?: Yes VS, I&O, 24H, [facility] Vital Signs/I&O Vital Signs Date Time Temp Pulse Resp B/P Pulse Ox O2 Delivery O2 Flow Rate FiO2 11/12/16 11:51 18 11/12/16 11:50 Room Air 11/12/16 11:30 97.6 60 120/58 99 I&O- Last 24 Hours up to 6 AM 11/12/16 06:00 Intake Total 3480 ml Output Total 1600 ml Balance 1880 ml Laboratory Data 24H LABS Laboratory Tests 2 11/12/16 05:20: Blood Urea Nitrogen 15, Creatinine 1.10, Sodium Level 142, Potassium Level 3.7, Chloride Level 108H, Carbon Dioxide Level 25, Calcium Level 8.5, Aspartate Amino Transf (AST/SGOT) 19, Alanine Aminotransferase (ALT/SGPT) 42, Alkaline Phosphatase 72, Total Bilirubin 0.4, Total Protein 6.4, Albumin 3.5, Albumin/ Globulin Ratio 1.21, Anion Gap 9, White Blood Count 5.2, Red Blood Count 4.83, Hemoglobin 14.5, Hematocrit 42.2, Mean Corpuscular Volume 87.4, Mean Corpuscular Hemoglobin 30.0, Mean Corpuscular Hemoglobin Concent 34.3, Red Cell Distribution Width 12.2, Platelet Count 222, Neutrophils (%) (Auto) 56.4, Lymphocytes (%) (Auto) 29.2, Monocytes (%) (Auto) 7.7H, Eosinophils (%) (Auto) 4.0H, Basophils (%) (Auto) 0.4, Neutrophils # (Auto) 2.9, Lymphocytes # (Auto) 1.5, Monocytes # (Auto) 0.4, Eosinophils # (Auto) 0.2, Basophils # (Auto) 0.0, Glomerular Filtration Rate > 60.0, Large Unclassified Cells # 0.1, Large Unclassified Cells % 2.3 CBC/BMP Laboratory Tests 11/12/16 05:20 Calcium Level 8.5, Aspartate Amino Transf (AST/SGOT) 19, Alanine Aminotransferase (ALT/SGPT) 42, Alkaline Phosphatase 72, Total Bilirubin 0.4, Total Protein 6.4, Albumin 3.5, Red Blood Count 4.83, Mean Corpuscular Volume 87.4, Mean Corpuscular Hemoglobin 30.0, Mean Corpuscular Hemoglobin Concent 34.3 , Red Cell Distribution Width 12.2, Neutrophils (%) (Auto) 56.4, Lymphocytes (% ) (Auto) 29.2, Monocytes (%) (Auto) 7.7 H, Eosinophils (%) (Auto) 4.0 H, Basophils (%) (Auto) 0.4, Neutrophils # (Auto) 2.9, Lymphocytes # (Auto) 1.5, Monocytes # (Auto) 0.4, Eosinophils # (Auto) 0.2, Basophils # (Auto) 0.0 LISBET MADSEN MD Nov 12, 2016 13:24
--- NOTE | 2016-11-12 14:29 | REP ---
Radionuclide cisternography: History: Positional headache, question CSF leak. Procedure: The injection procedure is performed and dictated separately. Neuraxis imaging is performed at 1 hour post injection as well as at 6 hours and at 24 hours. The acquisition protocol was terminated at this point at my direction. Findings: The initial 1 hour post injection image shows a somewhat irregular linear distribution of radiotracer in the lumbar spine proximal and distal to the injection site. There is also early visualization of tracer in the kidneys and the urinary bladder. The posterior view of the skull at this point showed diffuse soft tissue body uptake. These factors suggest epidural injection. The 6 hour and 24 hour delayed images show no evidence of cerebrospinal fluid activity in or about the brain. Persistent renal uptake is seen. Repeat imaging of the spine shows persistent uptake at the injection site which is abnormal. Impression: Failed intrathecal injection. The pattern of uptake suggests inadvertent epidural injection. Findings were discussed with Dr. Townsend at the time of this interpretation. Signed by Damaso Diaz MD 11/12/2016 03:06 P
--- NOTE | 2016-11-12 16:03 | REP ---
INJECTION FOR CISTERNOGRAM: The procedure was performed under the personal supervision of Dr. Diaz. The risks and benefits of the procedure were explained to the patient and informed consent was obtained. The L3-4 interspace was localized using fluoroscopic guidance. The skin was prepped and draped in a sterile fashion. 1% lidocaine was used as a local anesthetic. Using fluoroscopic guidance a 22-gauge spinal needle was inserted and advanced into the thecal sac. 1.1 mCi of Indium 111 DTPA was injected. The needle was removed and the patient was taken to Nuclear Medicine for postprocedure imaging. The patient tolerated the procedure well and there were no immediate complications. 7 seconds of fluoroscopy time was utilized for this procedure. Reviewed by MATHEW Sandoval 11/12/2016 04:11 PEdited and Signed by Damaso Diaz MD 11/12/2016 04:34 P
[2016-11-12] MEDS: NS 1,000 ML IV SCH ×2 (16:18→18:11)
[2016-11-13] VITALS (8 sets, daily range): BP systolic 115–129; BP diastolic 55–68; PULSE 55–78
[2016-11-13] MEDS: NS 1,000 ML IV SCH (04:11)
[2016-11-13 05:24] LABS: BASO % 0.6 % (0.0-1.0); EOS # 0.2 K/mm3 (0.0-0.50); EOS % 4.4 % (0.0-3.0); LARGE UNSTAINED CELL # 0.1 K/mm3 (0.0-0.4); LARGE UNSTAINED CELL % 2.4 % (0.0-4.0); LYMPH # 1.8 K/mm3 (1.5-4.5); LYMPH % 37.4 % (24.0-44.0); MEAN CORPUSCULAR HEMOGLOBIN 30.1 pg (27.0-33.0); MEAN CORPUSCULAR HGB CONC 34.2 g/dl (32.0-36.5); MEAN CORPUSCULAR VOLUME 88.3 fl (80.0-96.0); MONO # 0.4 K/mm3 (0.0-0.8); MONO % 8.1 % (0.0-5.0); NEUTROPHILS # 2.2 K/mm3 (1.8-7.7); NEUTROPHILS % 47.2 % (36.0-66.0); PLATELET COUNT, AUTOMATED 232 k/mm3 (150-450); RED CELL DISTRIBUTION WIDTH 12.5 % (11.5-14.5); WHITE BLOOD COUNT 4.6 K/mm3 (4.0-10.0)
[2016-11-13 05:39] LABS: ALBUMIN 3.4 GM/DL (3.2-5.2); ALKALINE PHOSPHATASE 72 U/L (45-117); ALT/SGPT 49 U/L (12-78); ANION GAP 8 MEQ/L (8-16); AST/SGOT 25 U/L (15-37); BILIRUBIN,TOTAL 0.5 MG/DL (0.2-1.0); BLOOD UREA NITROGEN 13 MG/DL (7-18); CALCIUM LEVEL 8.4 MG/DL (8.5-10.1); CARBON DIOXIDE LEVEL 25 MEQ/L (21-32); CHLORIDE LEVEL 110 MEQ/L (98-107); CREATININE FOR GFR 1.18 MG/DL (0.70-1.30); GLOMERULAR FILTRATION RATE > 60.0 (>60); GLUCOSE, FASTING 96 MG/DL (70-105); POTASSIUM SERUM 4.1 MEQ/L (3.5-5.1); SODIUM LEVEL 143 MEQ/L (136-145); TOTAL PROTEIN 6.5 GM/DL (6.4-8.2)
[2016-11-13] MEDS: ZONISAMIDE 50 MG CAP (ZONEGRAN) PO SCH ×2 (09:04→20:14)
[2016-11-13] MEDS: oxyCODONE 10 MG CR TAB PO SCH ×2 (09:05→20:14)
[2016-11-13] MEDS: MORPHINE 2 MG/ML 1ML SYRINGE IV PRN ×2 (12:51→22:34)
[2016-11-13] MEDS ORDERED: SLF 3 ML SYR IV PRN (22:45)
[2016-11-14 05:15] VITALS: BP 114/62
[2016-11-14] MEDS: SLF 3 ML SYR IV SCH ×3 (05:28→20:11)
[2016-11-14 08:00] VITALS: BP_SYST 134; BP_SYST 98; BP_DIAS 58; BP_DIAS 70
[2016-11-14] MEDS: oxyCODONE 10 MG CR TAB PO SCH ×2 (08:25→20:10)
[2016-11-14] MEDS: ZONISAMIDE 50 MG CAP (ZONEGRAN) PO SCH ×2 (08:25→20:10)
--- NOTE | 2016-11-14 10:10 | IPN ---
DATE: 11/13/2016 Patient is seen on rounds on intensive care unit (ICU). Patient is awake, alert , cheerful. He claims he gets headache if he gets up and walk around though does not get headache at 45 degrees when he is propped up in his bed. I discussed my findings and recommendations with Dr. Kelly Varma and Dr. Dumont. I have looked at his studies. I still feel he needs a cisternogram. The earlier study was nondiagnostic as the dye did not enter the subarachnoid space. Clinically, there is no change in his examination. There are no focal or localizing deficits. The MRI of the brain shows sloping down of the splenium far enough to displace the internal cerebral vein, the mammillary bodies appears to have descended down to nearly 5 mm from the anterior and superior border of Rosa, all intracranial sinuses and veins appear engorged, pachymeninges are lightening up due to engorged veins, the cerebellar tonsils have descended 1 mm or so below the foramen magnum, these findings as discussed earlier are suggestive of intracranial hypotension. I suspect this is from CSF leak though the etiology of that is not really clear. He could have undiagnosed pseudotumor cerebri which could have caused the leak. As discussed earlier, it appears that he has a CSF leak at C2-C3 on the right and to further localize and confirm this a leak would need cisternogram with spinal pictures at 2, 4 and 6 hours, and also would obtain intracranial pictures at 6 and 24 hours to assess the CSF dynamics or to look for any basal skull leaks, Once leak is definitely identified, would need digital MRI myelography or at least CT scan of the entire spine with thinnest slices and then surgical repair. If the leak is identified and not the site a salvage [employer] shunt can be done, though patient understands the salvage nature of the procedure and indefinite or clear role that would have in stopping his CSF leak. As in the past, I advised him to send all his workup to [facility] to see if another opinion could be obtained. I will be happy to follow him once his cisternogram is done. YUKO
--- NOTE | 2016-11-14 11:15 | IPNPDOC ---
Subjective General Date Seen The patient was seen on 11/13/16. Subjective Chief Complaint/HPI The patient is a 30-year-old male admitted with a reason for visit of Headache. Events since last encounter headache seems to be a little improved. did not require iv morphine for the past 24 hours. the cisternogram failed as the dye was in the epidural space. no fever or chills no chest pain or sob Objective Physical Examination General Exam: Positive: Alert, No Acute Distress Eye Exam: Positive: Conjunctiva & lids normal, PERRLA Chest Exam: Positive: Clear to auscultation, Normal air movement Heart Exam: Positive: Normal S1, Normal S2, Rate Normal, Regular Rhythm, Negative: Murmurs, Rubs Abdomen Exam: Positive: Normal bowel sounds, Soft, Negative: Hepatospenomegaly, Tenderness Extremity Exam: Positive: Normal pulses, Negative: Clubbing, Cyanosis, Edema Neuro Exam: Positive: Cranial Nerves 3-12 NL, Normal Speech Assessment /Plan Problems Problems: (1) Headache Status: Acute Problem Text: * pt still complaining of headaches, worse with sitting up or standing * Possibility of Of low ICP / CSF leak headache is entertained. * Neurosurgery and neurology are both consulted * MRI of entire spine was done and showed no evidence of leak * Dr Townsend recommended LP with blood patch at lumbar level and later at cervical and thoracic, he doesn't do blood patch * spoke with IR who do not do blood patches, spoke with Anesthesia and their response was without knowing exactly where the leak is they can't do a blood patch * Now ordered for cisternogram by NM to look for any csf leak (2) Episode of syncope Status: Resolved Problem Text: * unwitnessed, found patient passed out outside * continue to monitor on tele to rule out cardiac arrhythmia Plan/VTE VTE Prophylaxis Ordered?: Yes VS, I&O, 24H, Fishbone Vital Signs/I&O Vital Signs Date Time Temp Pulse Resp B/P Pulse Ox O2 Delivery O2 Flow Rate FiO2 11/13/16 22:34 18 11/13/16 20:30 97.5 62 125/66 96 Room Air I&O- Last 24 Hours up to 6 AM 11/13/16 06:00 Intake Total 6050 ml Output Total 4350 ml Balance 1700 ml Laboratory Data 24H LABS Laboratory Tests 2 11/13/16 04:41: Blood Urea Nitrogen 13, Creatinine 1.18, Sodium Level 143, Potassium Level 4.1, Chloride Level 110H, Carbon Dioxide Level 25, Calcium Level 8.4L, Aspartate Amino Transf (AST/SGOT) 25, Alanine Aminotransferase (ALT/SGPT) 49, Alkaline Phosphatase 72, Total Bilirubin 0.5, Total Protein 6.5, Albumin 3.4, Albumin/ Globulin Ratio 1.10, Anion Gap 8, White Blood Count 4.6, Red Blood Count 4.85, Hemoglobin 14.6, Hematocrit 42.8, Mean Corpuscular Volume 88.3, Mean Corpuscular Hemoglobin 30.1, Mean Corpuscular Hemoglobin Concent 34.2, Red Cell Distribution Width 12.5, Platelet Count 232, Neutrophils (%) (Auto) 47.2, Lymphocytes (%) (Auto) 37.4, Monocytes (%) (Auto) 8.1H, Eosinophils (%) (Auto) 4.4H, Basophils (%) (Auto) 0.6, Neutrophils # (Auto) 2.2, Lymphocytes # (Auto) 1.8, Monocytes # (Auto) 0.4, Eosinophils # (Auto) 0.2, Basophils # (Auto) 0.0, Glomerular Filtration Rate > 60.0, Large Unclassified Cells # 0.1, Large Unclassified Cells % 2.4 CBC/BMP Laboratory Tests 11/13/16 04:41 Calcium Level 8.4 L, Aspartate Amino Transf (AST/SGOT) 25, Alanine Aminotransferase (ALT/SGPT) 49, Alkaline Phosphatase 72, Total Bilirubin 0.5, Total Protein 6.5, Albumin 3.4, Red Blood Count 4.85, Mean Corpuscular Volume 88.3, Mean Corpuscular Hemoglobin 30.1, Mean Corpuscular Hemoglobin Concent 34.2 , Red Cell Distribution Width 12.5, Neutrophils (%) (Auto) 47.2, Lymphocytes (% ) (Auto) 37.4, Monocytes (%) (Auto) 8.1 H, Eosinophils (%) (Auto) 4.4 H, Basophils (%) (Auto) 0.6, Neutrophils # (Auto) 2.2, Lymphocytes # (Auto) 1.8, Monocytes # (Auto) 0.4, Eosinophils # (Auto) 0.2, Basophils # (Auto) 0.0 LISBET MADSEN MD Nov 13, 2016 22:46
--- NOTE | 2016-11-14 11:15 | IPNPDOC ---
Subjective General Date Seen The patient was seen on 11/14/16. Subjective Chief Complaint/HPI The patient is a 30-year-old male admitted with a reason for visit of Headache. Events since last encounter headache persists however has required any iv morphine. Paeint will need repeat cisternogram . As per neurology and neurosurgery he most probably has a CSF leak most probably due to violent episode of pseudotumor cerebri which is suspected at c2-c3 level to the right. At present MRI is suggestive of intracranial hypotension. Objective Physical Examination General Exam: Positive: Alert, No Acute Distress Eye Exam: Positive: Conjunctiva & lids normal, PERRLA Chest Exam: Positive: Clear to auscultation, Normal air movement Heart Exam: Positive: Normal S1, Normal S2, Rate Normal, Regular Rhythm, Negative: Murmurs, Rubs Abdomen Exam: Positive: Normal bowel sounds, Soft, Negative: Hepatospenomegaly, Tenderness Extremity Exam: Positive: Normal pulses, Negative: Clubbing, Cyanosis, Edema Neuro Exam: Positive: Cranial Nerves 3-12 NL, Normal Speech Assessment /Plan Problems Problems: (1) Headache Status: Acute Problem Text: * pt still complaining of headaches, worse with sitting up or standing * Possibility of Of low ICP / CSF leak headache is entertained. As per neurology and neurosurgery he most probably has a CSF leak most probably due to violent episode of pseudotumor cerebri which is suspected at c2-c3 level to the right. At present MRI is suggestive of intracranial hypotension. * MRI of entire spine was done and showed no evidence of leak * will need cisternogram to identify the site of the leak. Then will need digital myelography or isoview CT of entire spine then surgical repair. if cannot be identified then neurosurgeon suggested a salvage [employer] shunt. (2) Episode of syncope Status: Resolved Problem Text: * unwitnessed, found patient passed out outside * continue to monitor on tele to rule out cardiac arrhythmia Plan/VTE VTE Prophylaxis Ordered?: Yes VS, I&O, 24H, Fishbone Vital Signs/I&O Vital Signs Date Time Temp Pulse Resp B/P Pulse Ox O2 Delivery O2 Flow Rate FiO2 11/14/16 08:25 18 11/14/16 08:00 97.8 72 98/58 96 Room Air I&O- Last 24 Hours up to 6 AM 11/14/16 06:00 Intake Total 2440 ml Output Total 1700 ml Balance 740 ml LISBET MADSEN MD Nov 14, 2016 11:15
[2016-11-14 12:00] VITALS: BP 121/69
[2016-11-14] MEDS ORDERED: MORP2SY IV (13:35)
[2016-11-14] MEDS ORDERED: ZONI50CA PO (13:35)
[2016-11-14] MEDS ORDERED: OXYC-299 PO (13:35)
[2016-11-14 16:00] VITALS: BP 112/72
[2016-11-14] MEDS: MORPHINE 2 MG/ML 1ML SYRINGE IV PRN ×3 (17:37→22:59)
[2016-11-14 22:00] VITALS: BP 132/69
--- NOTE | 2016-11-14 22:06 | DSES ---
DATE OF ADMISSION: 11/06/2016 DATE OF DISCHARGE: 11/14/2016 PRIMARY CARE PHYSICIAN: At [facility] in [place]. DISCHARGE DIAGNOSIS: Low intracranial pressure headache due to spontaneous cerebrospinal fluid (CSF) leak possibly. 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 On the day of admission, he was working outside standing up when he had this severe pain and he passed out and was found unresponsive on the floor. He was unconscious for less than a minute and after that, he was brought to the emergency room. He did not have an trauma or any focal deficits. CT scans and MRIs were done in the emergency room, including brain, thoracic spine, lumbar spine, and cervical spine. All the MRIs were negative. A facial maxillary CT scan was done which showed some ethmoidal and sphenoidal sinusitis disease, and also to a lesser extent maxillary. There was no fracture of the anterior cranial fossa or cribriform plate. There was no pneumocephalus. Brain MRA was done. There was a pattern of effacement of the basal cisterns and sylvian fissures; however, no focal edema or mass was seen in the brainstem, cerebellum or cerebral hemispheres. There was slight prominence of hyperintense T2 and FLAIR dural signals and some dural enhancement. The seventh and eighth cranial nerve complexes and mastoids were intact. MR angiogram of the brain was normal without an aneurysm, vascular malformation or vessel cutoff. The pictures were reviewed by our neurosurgeon and neurologist, and as per them, there was slight sloping down of the splenium to displace the central vein and the mammillary bodies are sloping down by about 5 mm close to darwin. All the intracranial sinus and the veins were engorged. Pachymeninges were lighting up, felt to be due to engorged venules. The cerebellar tonsils descended by 1 mm below the foramen magnum. All of these are suggestive of intracranial hypertension, so it was concluded that the patient possibly had a spontaneous CSF leak from a violent episode of pseudotumor cerebri leading to low intracranial pressure and persistent low intracranial pressure-related headache. Our neurosurgeon thinks and suspects that the leak would be mostly at the C2-C3 level on the right. A cisternogram was attempted; however, it failed as the injection of the dye went into the epidural space instead of the intrathecal space. Further cisternogram could not be able to be performed here at our institution because of nonepileptic . Our neurology department was concerned about using a blood patch blindly, not knowing the site of the CSF leak. On the recommendation of our neurologist and neurosurgeon, the patient has been placed for transfer for further workup and management to [facility]. The patient has been accepted for transfer; however, at present there are no beds available so the patient has been placed on waiting list. PHYSICAL EXAMINATION: VITAL SIGNS: Temperature 97.8, pulse 72, respiratory rate 18, blood pressure 98/58, pulse oximetry 96% on room air. GENERAL: Patient awake, alert, and oriented times three. Lying down in bed in no acute distress. HEENT: Normocephalic, atraumatic. Moist mucous membranes. Anicteric eyes. CHEST: Clear to auscultation. CARDIOVASCULAR: S1, S2, regular. No rubs, murmurs, or gallops. ABDOMEN: Soft, nontender. Bowel sounds present. EXTREMITIES: No edema. LABORATORY DATA: WBC 4.6, hemoglobin 14.6, platelets 232. Sodium 143, potassium 4.1, chloride 110, bicarbonate 25, BUN 13, creatinine 1.1, glucose 96, calcium 8.4. Liver function tests are normal. Urine toxicology negative. DISPOSITION: The patient is for transfer to [facility]. DISCHARGE INSTRUCTIONS: Regular diet. Bedrest with bathroom privileges.
== END 2016-11-14 23:35 | disposition short-term general hospital (02) | DRG 93 ==
LOC: M ED 07:44 → M PCU 12:10 → OBSVTOIN 12:11 → M ED INP 12:11 → M PCU 15:48 → OBSVTOIN 11-10 10:59 → INTOOBSV 11-10 10:59 → M MS5PR 11-14 16:43
PROVIDERS: ADMIT Internal Medicine; ATTEND Internal Medicine
PROC: 3E0R3KZ Introduction of Other Diagnostic Substance into Spinal Canal, Percutaneous Approach (ICD-10-PCS; principal; 2016-11-12)
PROC: B31RYZZ Fluoroscopy of Intracranial Arteries using Other Contrast (ICD-10-PCS; 2016-11-12)
DX: G96.0 Cerebrospinal fluid leak (principal); R51 Headache; G93.2 Benign intracranial hypertension; Z87.891 Personal history of nicotine dependence

== ENCOUNTER → 2016-11-28 | Outpatient (CLI) | payer OTHER ==
[~2016-11-28] MED LIST: EXCETAB81 PO; MORP2SY IV; OXYC-299 PO; TYLE325T5 PO; ZONI50CA PO
--- NOTE | 2016-12-01 08:31 | REP ---
MRI BRAIN WITHOUT CONTRAST: HISTORY: Headaches. COMPARISON: 11/06/2016. There are no areas of abnormal signal intensity in the brain. There is no intraparenchymal hemorrhage, infarct, mass or midline shift. The ventricular system is normal in appearance. A small residual extracerebral fluid collection or dural thickening 2 mm in width is present overlying the left frontal lobe. Minimal mucosal thickening is present in the maxillary sinuses. IMPRESSION: There is a small residual extracerebral fluid collection or dural thickening 2 mm in width overlying the left frontal lobe. Signed by Antoni Overton MD 12/01/2016 08:43 A
== END ==
LOC: M RAD 18:11
PROVIDERS: ATTEND Neurological Surgery
DX: R51 Headache (principal); R90.89 Other abnormal findings on diagnostic imaging of central nervous system